=== PATIENT | female | born 1955 | race Caucasian/White ===

== ENCOUNTER 2020-07-09 17:31 | Inpatient (IN) | payer OTHER, SELFPAY ==
[2020-07-09] VITALS (10 sets, daily range): BP systolic 110–152; BP diastolic 42–71; PULSE 80–89; RESP 19–28; TEMP 36.3–36.4; O2SAT 98–100
--- NOTE | ~2020-07-09 | XR_ITS ---
XR chest 1V portable DATE: 07/09/2020 18:12 INDICATION: Cough, shortness of breath, fever, diminished appetite. Diarrhea. TECHNIQUE: Portable upright AP chest on 07/09/2020 at 1811 hours COMPARISON: None FINDINGS: Heart size appears normal. There are are patchy diffuse bilateral pulmonary infiltrates consistent with extensive bilateral pneu monia. No pleural effusion or pneumothorax. IMPRESSION: Patchy diffuse bilateral pulmonary infiltrates Reviewed, dictated and finalized at location A.
--- NOTE | ~2020-07-09 | CT_ITS ---
EXAMINATION: CTA chest PE protocol DATE: 07/09/2020 19:45 INDICATION: Shortness of breath TECHNIQUE: Computed tomography angiography (CTA) of the chest was performed with 100 mL Omnipaque-350 intravenous contrast timed to evaluate the pulmonary arteries. Coronal maximum intensity projection 3D-reconstructions were created by the technologist. Automated exposure control and iterative reconst ruction technique were employed. Exam dose: 691.11 mGy-cm total exam DLP. COMPARISON: None. FINDINGS: There is diagnostic contrast enhancement of the pulmonary arteries. There is no evidence of pulmonary embolism. Normal heart size. There is no aortic aneurysm or dissection. There are scattered patchy ground glass pulmonary infiltrates throughout both lungs. There is mild bilateral hilar and mediastinal enlargement, likely reactive. Diffuse hepatic steatosis. Right adrenal 11 mm mass and 18 mm left adrenal mass. There is degenerative spurring of the cervical, thoracic and lumbar spine. IMPRESSION: Scattered patchy pulmonary ground glass infiltrates throughout both lungs, with probable bilateral hilar and mediastinal reactive lymphadenopathy No evidence of pulmonary embolism Hepatic steatosis Bilateral adrenal masses Reviewed, dictated and finalized at Location A. Reviewed, dictated and finalized at location A. IMPRESSION: Scattered patchy pulmonary ground glass infiltrates throughout bot h lungs, with probable bilateral hilar and mediastinal reactive lymphadenopathy No evidence of pulmonary embolism Hepatic steatosis Bilateral adrenal masses
--- NOTE | ~2020-07-09 | XR_ITS ---
XR chest 1V portable 07/13/2020 17:32 Indication: Shortness of breath. Covid positive. Procedure: AP portable chest Comparison: 07/09/2020 Findings: There are persistent patchy bilateral infiltrates, compatible with pneumonia. No significan t change allowing for differences of technique. No significant effusion. Heart size normal. No pneumo thorax. No acute osseous abnormality. Impression: 1: Stable patchy bilateral airspace disease, compatible with pneumonia. Reviewed, dictated and finalized at location A. Impression: 1: Stable patchy bilateral airspace disease, compatible with pneumonia.
--- NOTE | 2020-07-09 17:54 | ECG_ITS ---
Measurements Intervals [place] Rate: 86 P: 74 VA: 148 QRS: 64 QRSD: 93 T: 41 QT: 363 QTc: 435 Interpretive Statements SINUS RHYTHM DELAYED PRECORDIAL R/S TRANSITION BASELINE WANDER- II, III, V1-V6 BORDERLINE ECG Electronically Signed On 07-09-2020 21:57:36 CDT by Justino Wing D.O.
--- NOTE | 2020-07-09 18:05 | ED.GENADULT ---
HPI - General Adult General Chief complaint: Shortness of Breath/Dyspnea Stated complaint: SOB Time Seen by Provider: 07/09/20 17:54 Source: patient History of Present Illness HPI narrative: Patient is a 65 y/o female complaining of moderate SOB for 1 week. There is no alleviating or exacerbating factor. She also has some cough and chill. She did not check her temperature. She has not had COVID vaccine yet. She had pulse of 89% on RA in triage. She was placed on O2 via nasal canula. Related Data Home Medications Medication Instructions Recorded Confirmed Januvia 07/09/20 metformin 1,500 mg PO DAILY 07/09/20 Allergies Allergy/AdvReac Type Severity Reaction Status Date / Time No Known Allergies Allergy Verified 07/09/20 17:53 Review of Systems Constitutional: Constitutional: Denies chills, Denies fever(s), Denies headache(s) and Denies weakness Eyes: Eyes: Denies blurry vision ENT: Denies headache(s) and Denies neck pain Cardiovascular: Cardiovascular: Denies chest pain and Reports dyspnea Respiratory: Respiratory: Reports cough and Reports dyspnea Gastrointestinal: Gastrointestinal: Denies abdominal pain, Denies diarrhea, Denies nausea and Denies vomiting Genitourinary: Genitourinary: Denies hematuria and Denies dysuria Musculoskeletal: Musculoskeletal: Denies back pain and Denies neck pain Neurologic: Denies headache(s) and Denies weakness [facility] Social History Social History Gender identity (if verbalized by the patient): Female Exam Const: General: no acute distress and well developed Orientation/consciousness: oriented to person, oriented to place, oriented to time and patient oriented x3 HENMT: Head: normocephalic Ears: external ears normal General nose exam: Normal external nose present Eyes: General: appearance normal, both eyes and all related structures Conjunctivae: conjunctivae normal Neck: Neck: normal visual inspection and full ROM Chest: Chest palpation & inspection: normal inspection of the chest and no tenderness Resp: Effort & Inspection: normal respiratory effort and tachypneic Auscultation: clear to auscultation bilaterally Cardio: Rate: regular rate Rhythm: regular rhythm GI: GI Palp: No abdominal tenderness and Yes Soft to palpation Skin: General skin exam: normal color and turgor normal Neuro: General: oriented to person, oriented to place, oriented to time and patient oriented x3 Cognition (Neuro): normal cognition Extrem: General: normal to inspection, full ROM and no pedal edema Psych: Appearance: grossly normal Mental Status: mental status grossly normal Affect: normal affect Course Consultations Consultation #1: Discussed with Dr. Gonzalez, who agrees to admit. Date: 07/09/20 Time: 20:51 Vital Signs Vital signs: Vital Signs Temperature 36.3 C L 07/09/20 17:49 Pulse Rate 87 07/09/20 17:49 Respiratory Rate 28 H 07/09/20 17:49 Blood Pressure 152/71 H 07/09/20 17:49 Pulse Oximetry 98 07/09/20 17:49 Temperature 36.3 C L 07/09/20 17:49 Pulse Rate 84 07/09/20 22:02 Respiratory Rate 24 H 07/09/20 22:02 Blood Pressure 110/42 L 07/09/20 22:02 Pulse Oximetry 99 07/09/20 22:02 Medical Decision Making Vital Signs Vital Signs: Vital Signs Temperature 36.3 C L 07/09/20 17:49 Pulse Rate 87 07/09/20 17:49 Respiratory Rate 28 H 07/09/20 17:49 Blood Pressure 152/71 H 07/09/20 17:49 Pulse Oximetry 98 07/09/20 17:49 Temperature 36.3 C L 07/09/20 17:49 Pulse Rate 84 07/09/20 22:02 Respiratory Rate 24 H 07/09/20 22:02 Blood Pressure 110/42 L 07/09/20 22:02 Pulse Oximetry 99 07/09/20 22:02 Lab Data Result diagrams: 07/09/20 18:02 07/09/20 18:02 Labs: Lab Results 07/09/20 07/09/20 07/09/20 Range/Units 18:02 18:02 18:02 WBC 5.8 (4.5-10.0) K/mm3 RBC 4.81 (4.2-5.4) M/mm3 Hgb 14.2 (12.0-15.0) g
[2020-07-09 18:12] LABS: Basophils Percent Auto 0.5 % (0.2-1.2); Eosinophils Percent Auto 0.7 % (0-4.4); Hematocrit 42.9 % (37.0-47.0); Hemoglobin 14.2 g/dL (12.0-15.0); Immature Granulocyte Absolute 0.04 K/mm3 (0.00-0.031); Immature Granulocyte Percent A 0.7 % (0-0.5); Lymphocytes Absolute Auto 1.91 K/mm3 (0.9-3.2); Lymphocytes Percent Auto 32.8 % (18.3-44.2); Mean Corpuscular HGB Conc 33.1 g/dl (32-36); Mean Corpuscular Hemoglobin 29.5 pg (26-34); Mean Corpuscular Volume 89.2 fl (80-100); Mean Platelet Volume 10.2 fl (7.4-10.4); Monocytes Absolute Auto 0.6 K/mm3 (0.1-0.6); Monocytes Percent Auto 10.6 % (2.6-8.5); Neutrophils Absolute Auto 3.2 K/mm3 (1.3-6.7); Neutrophils Percent Auto 54.7 % (45.5-73.1); Platelet Count Result 253 k/mm3 (150-375); Red Blood Count 4.81 M/mm3 (4.2-5.4); Red Cell Distribution Width 12.8 % (11.5-14.5); White Blood Count 5.8 K/mm3 (4.5-10.0)
[2020-07-09 18:24] LABS: Alanine Aminotransferase 20 U/L (4-35); Albumin Level 4.1 g/dL (3.5-5.1); Alkaline Phosphatase 97 U/L (38-126); Anion Gap 7 mmol/L (8-16); Aspartate Amino Transferase 37 U/L (14-36); Bilirubin,Total 0.6 mg/dL (0.2-1.3); Blood Urea Nitrogen 14 mg/dL (7-17); Calcium 8.7 mg/dL (8.4-10.2); Carbon Dioxide 28 mmol/L (22-30); Chloride 101 mmol/L (98-107); Estimated CRCL calculation 132 ml/min; Estimated Glomerular Filt Rate > 60; Glucose 309 mg/dL (65-105); Potassium 3.8 mmol/L (3.4-5.0); Sodium 136 mmol/L (137-145)
[2020-07-09 18:36] LABS: NT Pro B Type Natriuretic Pept 83 PG/ML (5-100); Troponin I < 0.012 ng/mL (0.000-0.034)
[2020-07-09 19:04] LABS: D Dimer 0.73 ug/mL (<0.48)
[2020-07-09 21:56] LABS: Troponin I < 0.012 ng/mL (0.000-0.034)
--- NOTE | 2020-07-09 22:30 | ADMGEN ---
This patient, Harriet Giraldo, was admitted to 3 [facility] Surg Room 326-01. Patient/family oriented to hospital policies and general routines including ID bracelet, bed and alarms, visiting hours, pain management, procedures, bathroom and other care routines, personal items, smoking policy, room service/diet, and visiting hours. Information on how to activate the Rapid Response Team has been discussed. Patient/Family are encouraged to report perceived risks to care and to ask questions if they do not understand what they are told or what they should do.
[2020-07-10] VITALS (8 sets, daily range): BP systolic 116–149; BP diastolic 48–60; PULSE 67–87; RESP 16–20; TEMP 36.1–37; O2SAT 93–99
[2020-07-10 00:11] LABS: Glucose Point of Care 275 (65-105)
[2020-07-10 00:49] LABS: Troponin I < 0.012 ng/mL (0.000-0.034)
[2020-07-10] MEDS: ACETAMINOPHEN 325 MG TABLET 650 MG PO ×2 (04:55→15:04)
--- NOTE | 2020-07-10 07:36 | PM.IMHP ---
H&P: HPI History of Present Illness Date/Time: 07/10/20 05:15 Chief Complaint: Shortness of breath Narrative: 65-year-old female past medical history of diabetes and obesity who presented to the ER (after her was brought into the ER by EMS) due to shortness of breath. The patient reports that approximately 10 days ago both her became ill. Her initial symptoms included fatigue lethargy and generalized body aches. Couple of days later she developed cough occasionally productive of brown sputum and subjective fevers. Get out of bed except to go to the bathroom bathroom for the last week. She reports that food does not taste right but denies any complete loss of sense of taste or smell. She has no known COVID exposures years but she and her live with their daughter who works outside the home. She reported a headache on the evening of the but denies any visual changes. She has not had any nausea or vomiting. She has had some loose stools. Worse with cough. She denies any dysuria. She has chronic urinary urgency with occasional urinary incontinence. She denies any hematuria, hematochezia or melena. She reports that she is frequently fatigued upon awakening but assumes that that is because her is a restless sleeper and wakes her up multiple times. She does snore. She denies any lower extremity swelling, orthopnea or paroxysmal nocturnal dyspnea. Review of Systems Review of Systems: Narrative: 12 systems were reviewed with pertinent positives and negatives per HPI. Except as documented in the HPI, all other systems were reviewed and are negative. [facility] Past Medical History Medical History (Updated 07/10/20 @ 08:07 by Aye Gonzalez DO) Diabetes mellitus Obesity Urge incontinence Surgical History Surgical History (Updated 07/10/20 @ 07:39 by Aye Gonzalez DO) History of 3 sections History of tonsillectomy History of tubal ligation Family History Family History (Updated 07/10/20 @ 07:46 by Aye Gonzalez DO) Father Diabetes mellitus Lung cancer Mother Lung cancer Sibling Diabetes mellitus Lung cancer Social History Social History (Updated 07/10/20 @ 07:49 by Aye Gonzalez DO) Social History: She and her are originally from [place]. 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 She has 3 children total. She is a former smoker and smoked a pack per day for 34 years. She quit smoking in 2008. She does not drink alcohol use illicit substances. Smoking packs per day: 1 Smoking cigarettes per day: 20.0 Years smoked: 34 Smoking pack-years: 34.00 Smoking status: Former smoker Tobacco type: cigarettes Alcohol intake: never Substance use: never Substance use type: does not use Gender identity (if verbalized by the patient): Female Spiritual care concerns: No Meds Home Medications and Allergies Home Medications Medication Instructions Recorded Confirmed Type metformin 2,000 mg PO QPM 07/09/20 07/10/20 History sitagliptin [Januvia] 100 mg PO QAM 07/10/20 07/10/20 History Allergies Allergy/AdvReac Type Severity Reaction Status Date / Time No Known Allergies Allergy Verified 07/09/20 17:53 Vital Signs Vital Signs - 24 hr 07/09/20 17:49 07/09/20 17:56 07/09/20 18:08 Temperature 97.3 F L Pulse Rate 87 89 83 Respiratory Rate 28 H 22 H Blood Pressure 152/71 H 152/71 H Pulse Oximetry 98 98 07/09/20 18:40 07/09/20 19:02 07/09/20 20:00 Temperature Pulse Rate 80 81 84 Respiratory Rate 22 H 26 H 19 Blood Pressure 135/65 134/62 135/65 Pulse Oximetry 99 98 100 07/09/20 21:15 07/09/20 22:02 07/09/20 22:25 Temperature 97.5 F L Pulse Rate 80 84 80 Respiratory Rate 28 H 24 H 22 H Blood Pressure 125/53 L 110/42 L 142/68 H Pulse Oximetry 99 99 98 07/09/20 23:45 07/10/20 04:00 [place]a
[2020-07-10 08:07] LABS: Hematocrit 41.8 % (37.0-47.0); Hemoglobin 13.8 g/dL (12.0-15.0); Mean Corpuscular Hemoglobin 29.7 pg (26-34); Mean Corpuscular Volume 90.1 fl (80-100); Mean Platelet Volume 10.1 fl (7.4-10.4); Platelet Count Result 230 k/mm3 (150-375); Red Blood Count 4.64 M/mm3 (4.2-5.4); Red Cell Distribution Width 12.9 % (11.5-14.5); White Blood Count 6.1 K/mm3 (4.5-10.0)
[2020-07-10 08:18] LABS: Anion Gap 6 mmol/L (8-16); Blood Urea Nitrogen 14 mg/dL (7-17); Calcium 8.5 mg/dL (8.4-10.2); Carbon Dioxide 30 mmol/L (22-30); Chloride 101 mmol/L (98-107); Estimated CRCL calculation 132 ml/min; Estimated Glomerular Filt Rate > 60; Glucose 313 mg/dL (65-105); Potassium 3.7 mmol/L (3.4-5.0); Sodium 137 mmol/L (137-145)
[2020-07-10] MEDS: INSULIN ASPART (*BKC) 100 UNITS/ML SUB-Q ×3 (08:19→17:15)
[2020-07-10] MEDS: ENOXAPARIN 40 MG/0.4 ML SYRINGE SUB-Q ×2 (08:43→22:50)
[2020-07-10 09:19] LABS: Glucose Point of Care 295 (65-105)
[2020-07-10 10:24] LABS: Hemoglobin A1C 11.5 % (<5.7)
[2020-07-10 12:30] LABS: Glucose Point of Care 299 (65-105)
[2020-07-10] MEDS: SOLIFENACIN 5 MG TABLET 10 MG PO (15:00)
[2020-07-10 16:59] LABS: Glucose Point of Care 286 (65-105)
[2020-07-10] MEDS: ESCITALOPRAM OXALATE 10 MG TABLET 20 MG PO (17:17)
[2020-07-10] MEDS: metFORMIN HCL XR 500 MG TAB.SR.24H 2000 MG PO (17:17)
--- NOTE | 2020-07-10 17:45 | PM.IMPN ---
Progress Note: A&P Assessment and Plan (1) Pneumonia: Qualifiers: Laterality: bilateral Lung location: unspecified part of lung Pneumonia type: due to unspecified organism Qualified Code(s): J18.9 - Pneumonia, unspecified organism Code(s): J18.9 - Pneumonia, unspecified organism Status: Acute Assessment and Plan: Patient has been started on ceftriaxone and Zithromax Supportive care Await blood cultures (2) Person under investigation for COVID-19: Code(s): Z20.822 - Contact with and (suspected) exposure to COVID-19 Status: Acute Assessment and Plan: Awaiting COVID-19 PCR The patient is on isolation (3) Acute respiratory failure with hypoxia: Code(s): J96.01 - Acute respiratory failure with hypoxia Status: Acute Assessment and Plan: On 2 L of nasal cannula oxygen Saturating in the 90s (4) Type 2 diabetes mellitus with hyperglycemia: 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 Qualified Code(s): E11.65 - Type 2 diabetes mellitus with hyperglycemia Code(s): E11.65 - Type 2 diabetes mellitus with hyperglycemia Status: Acute Assessment and Plan: 1800 calorie restricted diet Insulin sliding scale as needed Accu-Cheks AC and HS Subjective Date/time seen: 07/10/20 17:45 I do not feel well Review of Systems Review of Systems: Narrative: Patient presented to the emergency room after having generalized Nancy fever chills poor appetite dry cough for about a week or so Constitutional: Comments: Fevers chills generalized malaise is muscle aches and pains Cardiovascular: Comments: No chest pain no PND no orthopnea Respiratory: Comments: Persistent dry cough shortness of breath Gastrointestinal: Comments: No nausea no vomiting no diarrhea no constipation Musculoskeletal: Comments: Muscle aches and pains Integumentary/Breasts: Comments: No rashes Neurologic: Comments: No sensorimotor deficit Exam Narrative: Exam Narrative: Patient is sitting by the edge of the bed well-appearing, coughs at times Const: General: comfortable, no acute distress, well developed, alert and awake Nutritional Appearance: average body habitus Orientation/consciousness: patient oriented x3 HENMT: Head: normal to inspection, normocephalic and atraumatic Ears: hearing grossly normal bilaterally Face and sinus: normal facial exam Eyes: General: appearance normal, both eyes and all related structures Pupils: Equal, round and reactive pupils present EOM: EOMs intact bilaterally Neck: Neck: full ROM, no lymphadenopathy and no JVD Thyroid: thyroid normal Lymphatic: no lymphadenopathy noted Resp: Effort & Inspection: normal respiratory effort and able to speak in complete sentences Auscultation: clear to auscultation bilaterally Cardio: Jugular venous distension: no JVD Rate: regular rate Rhythm: regular rhythm Heart sounds: S1 normal heart sound present and S2 normal heart sound present GI: GI Palp: Yes Soft to palpation and Yes No hepatosplenomegaly present : General: Yes deferred Skin: Rashes: no rashes Wounds: no wounds Neuro: General: patient oriented x3 and CN's II-XI intact bilaterally Cranial nerves: Yes CN's II-XII intact bilaterally and Yes Equal, round and reactive pupils present Cognition (Neuro): normal cognition Speech: normal speech Gait exam (Neuro): Normal gait present Motor exam (neuro): 5/5 motor strength present throughout Extrem: General: normal to inspection, full ROM, no joint enlargement and no pedal edema Objective Data Vital Signs Vital Signs: Vital Signs - 24 hr 07/09/20 17:49 07/09/20 17:56 07/09/20 18:08 Temperature 97.3 F L Pulse Rate 87 89 83 Respiratory Rate 28 H 22 H Blood Pressure 152/71 H 152/71 H Pulse Oximetry 98 98 07/09/20 18:40 07/09/20 19:02 07/09/20 20:00 Temperature Pulse Rate 80 81 84 Respiratory Rate 22 H 26 H 19 Blood Pressure
[2020-07-10 19:04] LABS: SARS-CoV-2 RNA PCR Positive
[2020-07-10] MEDS: DONEPEZIL HCL 10 MG TABLET PO (20:51)
[2020-07-11] VITALS (9 sets, daily range): BP systolic 121–147; BP diastolic 50–79; PULSE 74–80; RESP 18–20; TEMP 36.2–36.6; O2SAT 88–98
[2020-07-11 04:53] LABS: Glucose Point of Care 335 (65-105)
[2020-07-11 08:55] LABS: Glucose Point of Care 290 (65-105)
[2020-07-11] MEDS: INSULIN ASPART (*BKC) 100 UNITS/ML SUB-Q ×3 (08:55→17:16)
[2020-07-11] MEDS: ENOXAPARIN 40 MG/0.4 ML SYRINGE SUB-Q ×2 (08:56→20:45)
[2020-07-11] MEDS: SOLIFENACIN 5 MG TABLET 10 MG PO (08:56)
[2020-07-11] MEDS: EZETIMIBE 10 MG TABLET PO (08:56)
[2020-07-11] MEDS: DEXAMETHASONE SOD PHOS INJ 4 MG/ML VIAL 6 MG IV PUSH (08:56)
[2020-07-11 12:00] LABS: Glucose Point of Care 315 (65-105)
--- NOTE | 2020-07-11 15:31 | PM.IMPN ---
Progress Note: A&P Assessment and Plan (1) Pneumonia: Qualifiers: Laterality: bilateral Lung location: unspecified part of lung Pneumonia type: due to unspecified organism Qualified Code(s): J18.9 - Pneumonia, unspecified organism Code(s): J18.9 - Pneumonia, unspecified organism Status: Acute Assessment and Plan: Patient has been started on ceftriaxone and Zithromax Await sputum and blood cultures (2) Person under investigation for COVID-19: Code(s): Z20.822 - Contact with and (suspected) exposure to COVID-19 Status: Acute Assessment and Plan: Pt is positive for covid (3) Acute respiratory failure with hypoxia: Code(s): J96.01 - Acute respiratory failure with hypoxia Status: Acute Assessment and Plan: On 2 L of nasal cannula oxygen (4) Type 2 diabetes mellitus with hyperglycemia: Qualifiers: 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 Patient is covid positive. Subjective Date/time seen: 07/11/20 15:31 Interval history: 65-year-old female past medical history of diabetes and obesity who presented to the ER (after her was brought into the ER by EMS) due to shortness of breath. Found to be COVID positive. Pt is still having a bad cough. Review of Systems Review of Systems: All systems reviewed & are unremarkable except as noted in HPI and below Exam Narrative: Exam Narrative: Patient is sitting by the edge of the bed well-appearing, coughs at times HENMT: Head: normal to inspection, normocephalic and atraumatic Ears: hearing grossly normal bilaterally Face and sinus: normal facial exam Eyes: General: appearance normal, both eyes and all related structures Pupils: Equal, round and reactive pupils present EOM: EOMs intact bilaterally Neck: Neck: full ROM, no lymphadenopathy and no JVD Thyroid: thyroid normal Lymphatic: no lymphadenopathy noted Resp: Effort & Inspection: normal respiratory effort Cardio: Jugular venous distension: no JVD Rate: regular rate Rhythm: regular rhythm Heart sounds: S1 normal heart sound present and S2 normal heart sound present Skin: Rashes: no rashes Wounds: no wounds Neuro: General: patient oriented x3 and CN's II-XI intact bilaterally Cranial nerves: Yes CN's II-XII intact bilaterally and Yes Equal, round and reactive pupils present Cognition (Neuro): normal cognition Speech: normal speech Gait exam (Neuro): Normal gait present Motor exam (neuro): 5/5 motor strength present throughout Extrem: General: normal to inspection, full ROM, no joint enlargement and no pedal edema Objective Data Vital Signs Vital Signs: Vital Signs - 24 hr 07/10/20 16:00 07/10/20 20:00 07/11/20 00:00 Temperature 36.6 C 36.1 C L 36.2 C L Pulse Rate 67 73 74 Respiratory Rate 16 18 18 Blood Pressure 116/48 L 137/58 L 121/50 L Pulse Oximetry 98 95 97 07/11/20 04:00 07/11/20 08:00 07/11/20 08:55 Temperature 36.6 C 36.2 C L Pulse Rate 78 75 Respiratory Rate 18 18 Blood Pressure 146/71 H 134/55 L Pulse Oximetry 96 91 88 L 07/11/20 09:00 07/11/20 12:00 Temperature 36.3 C L Pulse Rate 79 Respiratory Rate 20 Blood Pressure 146/66 H Pulse Oximetry 95 95 Intake/Output Intake/Output: Intake & Output 07/08/20 07/09/20 07/10/20 07/11/20 23:59 23:59 23:59 23:59 Intake Total 300 1640 340 Output Total 600 Balance 300 1040 340 Meds/Results Medications: Active Medications Generic Name Dose Route Start Last Admin Trade Name Freq PRN Reason Stop Dose Admin Acetaminophen 650 mg 07/10/20 04:41
[2020-07-11] MEDS: metFORMIN HCL XR 500 MG TAB.SR.24H 2000 MG PO (17:17)
[2020-07-11] MEDS: ESCITALOPRAM OXALATE 10 MG TABLET 20 MG PO (17:18)
[2020-07-11 18:08] LABS: Glucose Point of Care 351 (65-105)
[2020-07-11] MEDS: BENZONATATE 100 MG CAPSULE PO (18:11)
[2020-07-11] MEDS: DONEPEZIL HCL 10 MG TABLET PO (20:46)
[2020-07-11 20:55] LABS: Glucose Point of Care 344 (65-105)
[2020-07-11] MEDS: INSULIN ASPART (*BKC) 100 UNITS/ML 6 UNITS SUB-Q (22:47)
[2020-07-11 22:54] LABS: Glucose Point of Care 283 (65-105)
[2020-07-12] VITALS (8 sets, daily range): BP systolic 111–154; BP diastolic 50–72; PULSE 68–78; RESP 16–20; TEMP 36.2–37; O2SAT 91–99
[2020-07-12 05:17] LABS: Glucose Point of Care 225 (65-105)
[2020-07-12 07:58] LABS: Glucose Point of Care 231 (65-105)
[2020-07-12] MEDS: INSULIN ASPART (*BKC) 100 UNITS/ML SUB-Q ×3 (08:32→17:34)
[2020-07-12] MEDS: BENZONATATE 100 MG CAPSULE PO ×3 (08:33→17:34)
[2020-07-12] MEDS: ENOXAPARIN 40 MG/0.4 ML SYRINGE SUB-Q ×2 (08:33→20:32)
[2020-07-12] MEDS: SOLIFENACIN 5 MG TABLET 10 MG PO (08:33)
[2020-07-12] MEDS: DEXAMETHASONE SOD PHOS INJ 4 MG/ML VIAL 6 MG IV PUSH (08:33)
[2020-07-12] MEDS: EZETIMIBE 10 MG TABLET PO (08:33)
[2020-07-12 12:20] LABS: Glucose Point of Care 341 (65-105)
--- NOTE | 2020-07-12 16:53 | PM.IMPN ---
Progress Note: A&P Assessment and Plan (1) Pneumonia: Qualifiers: Laterality: bilateral Lung location: unspecified part of lung Pneumonia type: due to unspecified organism Qualified Code(s): J18.9 - Pneumonia, unspecified organism Code(s): J18.9 - Pneumonia, unspecified organism Status: Acute Assessment and Plan: Patient has been started on iv steroids and Tessalon perles doing well. 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 Patient is covid positive. Subjective Date/time seen: 07/12/20 16:53 Interval history: 65-year-old female past medical history of diabetes and obesity who presented to the ER (after her was brought into the ER by EMS) due to shortness of breath. Found to be COVID positive. Pts cough is better. Review of Systems Review of Systems: All systems reviewed & are unremarkable except as noted in HPI and below Exam Narrative: Exam Narrative: Patient is sitting by the edge of the bed well-appearing, coughs at times Const: Orientation/consciousness: patient oriented x3 HENMT: Head: normal to inspection, normocephalic and atraumatic Ears: hearing grossly normal bilaterally Face and sinus: normal facial exam Eyes: General: appearance normal, both eyes and all related structures Pupils: Equal, round and reactive pupils present EOM: EOMs intact bilaterally Neck: Neck: full ROM, no lymphadenopathy and no JVD Thyroid: thyroid normal Lymphatic: no lymphadenopathy noted Resp: Effort & Inspection: normal respiratory effort Cardio: Jugular venous distension: no JVD Rate: regular rate Rhythm: regular rhythm Heart sounds: S1 normal heart sound present and S2 normal heart sound present Skin: Rashes: no rashes Wounds: no wounds Neuro: General: patient oriented x3 and CN's II-XI intact bilaterally Cranial nerves: Yes CN's II-XII intact bilaterally and Yes Equal, round and reactive pupils present Cognition (Neuro): normal cognition Speech: normal speech Gait exam (Neuro): Normal gait present Motor exam (neuro): 5/5 motor strength present throughout Extrem: General: normal to inspection, full ROM, no joint enlargement and no pedal edema Objective Data Vital Signs Vital Signs: Vital Signs - 24 hr 07/11/20 20:00 07/11/20 22:36 07/12/20 00:00 Temperature 36.4 C 36.4 C Pulse Rate 80 78 Respiratory Rate 20 20 Blood Pressure 146/66 H 129/50 L Pulse Oximetry 96 96 94 07/12/20 04:00 07/12/20 08:00 07/12/20 08:09 Temperature 36.6 C 36.2 C L Pulse Rate 68 69 Respiratory Rate 20 16 Blood Pressure 111/50 L 135/60 Pulse Oximetry 99 95 97 07/12/20 12:00 Temperature 36.3 C L Pulse Rate 73 Respiratory Rate 16 Blood Pressure 132/72 Pulse Oximetry 95 Intake/Output Intake/Output: Intake & Output 07/09/20 07/10/20 07/11/20 07/12/20 23:59 23:59 23:59 23:59 Intake Total 300 1640 1720 830 Output Total 600 1200 Balance 300 1040 520 830 Meds/Results Medications: Active Medications Generic Name Dose Route Start Last Admin Trade Name Freq PRN Reason Stop D
[2020-07-12 17:13] LABS: Glucose Point of Care 360 (65-105)
[2020-07-12] MEDS: ESCITALOPRAM OXALATE 10 MG TABLET 20 MG PO (17:34)
[2020-07-12] MEDS: metFORMIN HCL XR 500 MG TAB.SR.24H 2000 MG PO (17:34)
[2020-07-12] MEDS: DONEPEZIL HCL 10 MG TABLET PO (20:32)
[2020-07-12 21:34] LABS: Glucose Point of Care 344 (65-105)
[2020-07-12 22:58] LABS: Pneumococcal Antigen Urine Not Detected (Not Detected)
[2020-07-13] VITALS (7 sets, daily range): BP systolic 137–161; BP diastolic 53–76; PULSE 71–82; RESP 16–20; TEMP 36.1–37.2; O2SAT 92–94
[2020-07-13 08:06] LABS: Glucose Point of Care 189 (65-105)
[2020-07-13] MEDS: DEXAMETHASONE SOD PHOS INJ 4 MG/ML VIAL 6 MG IV PUSH (09:46)
[2020-07-13] MEDS: EZETIMIBE 10 MG TABLET PO (09:46)
[2020-07-13] MEDS: BENZONATATE 100 MG CAPSULE PO ×3 (09:46→17:07)
[2020-07-13] MEDS: SOLIFENACIN 5 MG TABLET 10 MG PO (09:46)
[2020-07-13] MEDS: ENOXAPARIN 40 MG/0.4 ML SYRINGE SUB-Q (09:46)
[2020-07-13 12:21] LABS: Glucose Point of Care 305 (65-105)
[2020-07-13] MEDS: INSULIN ASPART (*BKC) 100 UNITS/ML SUB-Q ×2 (12:24→17:07)
[2020-07-13 16:46] LABS: Glucose Point of Care 383 (65-105)
[2020-07-13] MEDS: ESCITALOPRAM OXALATE 10 MG TABLET 20 MG PO (17:06)
[2020-07-13] MEDS: metFORMIN HCL XR 500 MG TAB.SR.24H 2000 MG PO (17:07)
--- NOTE | 2020-07-13 17:15 | PM.IMPN ---
Progress Note: A&P Assessment and Plan (1) Pneumonia: Qualifiers: Laterality: bilateral Lung location: unspecified part of lung Pneumonia type: due to unspecified organism Qualified Code(s): J18.9 - Pneumonia, unspecified organism Code(s): J18.9 - Pneumonia, unspecified organism Status: Acute Assessment and Plan: Patient has been started on iv steroids and Tessalon perles doing well. NO IV Abx were started Await sputum and blood cultures, sputum is ngative (2) Person under investigation for COVID-19: Code(s): Z20.822 - Contact with and (suspected) exposure to COVID-19 Status: Acute Assessment and Plan: Pt is positive for covid (3) Acute respiratory failure with hypoxia: Code(s): J96.01 - Acute respiratory failure with hypoxia Status: Acute Assessment and Plan: Off oxygen DC tomorrow, cxr ronald (4) Type 2 diabetes mellitus with hyperglycemia: Qualifiers: Diabetes mellitus fpc insulin use: without fpc use Qualified Code(s): E11.65 - Type 2 diabetes mellitus with hyperglycemia Code(s): E11.65 - Type 2 diabetes mellitus with hyperglycemia Status: Acute Assessment and Plan: 1800 calorie restricted diet Insulin sliding scale as needed Accu-Cheks AC and HS Additional Plan She has developed acute respiratory failure due to bilateral pneumonia. Patient is covid positive. Subjective Date/time seen: 07/13/20 17:15 Interval history: 65-year-old female past medical history of diabetes and obesity who presented to the ER (after her was brought into the ER by EMS) due to shortness of breath. Found to be COVID positive. Pts cough is better. Doing much better off oxygen Review of Systems Review of Systems: All systems reviewed & are unremarkable except as noted in HPI and below Exam Narrative: Exam Narrative: Patient looks well Const: General: comfortable, no acute distress, well developed, alert and awake Nutritional Appearance: average body habitus Orientation/consciousness: patient oriented x3 HENMT: Head: normal to inspection, normocephalic and atraumatic Ears: hearing grossly normal bilaterally Face and sinus: normal facial exam Eyes: General: appearance normal, both eyes and all related structures Pupils: Equal, round and reactive pupils present EOM: EOMs intact bilaterally Neck: Neck: full ROM, no lymphadenopathy and no JVD Thyroid: thyroid normal Lymphatic: no lymphadenopathy noted Resp: Effort & Inspection: normal respiratory effort and able to speak in complete sentences Auscultation: clear to auscultation bilaterally Cardio: Jugular venous distension: no JVD Rate: regular rate Rhythm: regular rhythm Heart sounds: S1 normal heart sound present and S2 normal heart sound present : General: Yes deferred Skin: Rashes: no rashes Wounds: no wounds Neuro: General: patient oriented x3 and CN's II-XI intact bilaterally Cranial nerves: Yes CN's II-XII intact bilaterally and Yes Equal, round and reactive pupils present Cognition (Neuro): normal cognition Speech: normal speech Gait exam (Neuro): Normal gait present Motor exam (neuro): 5/5 motor strength present throughout Extrem: General: normal to inspection, full ROM, no joint enlargement and no pedal edema Objective Data Vital Signs Vital Signs: Vital Signs - 24 hr 07/12/20 20:00 07/12/20 21:03 07/13/20 00:00 Temperature 37.0 C 37.2 C Pulse Rate 77 75 72 Respiratory Rate 20 20 Blood Pressure 154/56 H 137/53 L Pulse Oximetry 91 92 94 07/13/20 04:00 07/13/20 08:00 07/13/20 12:00 Temperature 36.6 C 36.1 C L 36.2 C L Pulse Rate 72 71 Respiratory Rate 20 16 Blood Pressure 141/53 H 149/76 H Pulse Oximetry 94 94 07/13/20 12:33 Temperature 36.2 C L Pulse Rate 81 Respiratory Rate 16 Blood Pressure 153/70 H Pulse Oximetry 94 Intake/Output Intake/Output: Intake & Output 07/10/20 07/11/20 07/12/20
[2020-07-13 17:46] LABS: Legionella pneumophila Ag Ur Not Detected (Not Detected)
[2020-07-14] VITALS: BP 154/67; PULSE 87; RESP 20; TEMP 36.9; O2SAT 94
[2020-07-14 00:17] VITALS: O2SAT 92
[2020-07-14] MEDS: ENOXAPARIN 40 MG/0.4 ML SYRINGE SUB-Q ×2 (01:38→08:46)
[2020-07-14] MEDS: DONEPEZIL HCL 10 MG TABLET PO (01:38)
[2020-07-14 01:39] LABS: Glucose Point of Care 310 (65-105)
--- NOTE | 2020-07-14 01:42 | PC.NURSE ---
POC Capillary glucose is 310 @ 0138. Asymptomatic with no s/s of hyperglycemic reaction.
[2020-07-14 04:00] VITALS: BP 165/82; PULSE 76; RESP 20; TEMP 37.1; O2SAT 93
[2020-07-14 08:00] VITALS: BP 138/63; PULSE 62; RESP 20; TEMP 36.7; O2SAT 96
[2020-07-14 08:02] LABS: Glucose Point of Care 238 (65-105)
[2020-07-14] MEDS: INSULIN ASPART (*BKC) 100 UNITS/ML SUB-Q ×2 (08:45→12:29)
[2020-07-14] MEDS: DEXAMETHASONE SOD PHOS INJ 4 MG/ML VIAL 6 MG IV PUSH (08:46)
[2020-07-14] MEDS: BENZONATATE 100 MG CAPSULE PO ×2 (08:46→12:30)
[2020-07-14] MEDS: EZETIMIBE 10 MG TABLET PO (08:46)
[2020-07-14] MEDS: SOLIFENACIN 5 MG TABLET 10 MG PO (08:46)
[2020-07-14 11:48] LABS: Glucose Point of Care 344 (65-105)
[2020-07-14 11:55] VITALS: BP 141/59; PULSE 78; RESP 20; TEMP 36.7; O2SAT 94
--- NOTE | 2020-07-14 14:02 | PM.DS ---
DS: Admitting Diagnosis Admitting Diagnosis Admitting Diagnosis: Shortness of breath DS: Discharge Diagnosis Discharge Diagnosis (1) Pneumonia: Qualifiers: Laterality: bilateral Lung location: unspecified part of lung Pneumonia type: due to unspecified organism Qualified Code(s): J18.9 - Pneumonia, unspecified organism Code(s): J18.9 - Pneumonia, unspecified organism Status: Acute Assessment and Plan: COVID PNEUMOMIA VIRAL PNEUMONIA Patient has been started on iv steroids and Tessalon perles doing well. NO IV Abx were started Await sputum and blood cultures, sputum is negative. Pt weaned off oxygen doing well. Continue oral steroid course at home and Tessalon perles. (2) Person under investigation for COVID-19: Code(s): Z20.822 - Contact with and (suspected) exposure to COVID-19 Status: Acute Assessment and Plan: Pt is positive for covid doing well weaned off oxygen stable for discharge home gail have to quaratine until 07/21/2020 (3) Acute respiratory failure with hypoxia: Code(s): J96.01 - Acute respiratory failure with hypoxia Status: Acute Assessment and Plan: Cxr showed pneumonia but pt is stable for discharge (4) Type 2 diabetes mellitus with hyperglycemia: Qualifiers: Diabetes mellitus emt intermediate insulin use: without fpc use Qualified Code(s): E11.65 - Type 2 diabetes mellitus with hyperglycemia Code(s): E11.65 - Type 2 diabetes mellitus with hyperglycemia Status: Acute Assessment and Plan: 1800 calorie restricted diet adviced her sugars will run high on oral steroids DS: Summary Hospital Course Hospital Course: 65-year-old female past medical history of diabetes and obesity who presented to the ER (after her was brought into the ER by EMS) due to shortness of breath. Found to be COVID positive. Pts cough is better. Doing much better off oxygen since yesterday, stable for discharge. Time Spent with Patient Time attestation: Total time spent providing and/or coordinating discharge services:40 minutes on day of discharge Exam Narrative: Exam Narrative: Patient looks well Const: General: comfortable, no acute distress, well developed, alert and awake Nutritional Appearance: average body habitus Orientation/consciousness: patient oriented x3 HENMT: Head: normal to inspection, normocephalic and atraumatic Ears: hearing grossly normal bilaterally Face and sinus: normal facial exam Resp: Effort & Inspection: normal respiratory effort and able to speak in complete sentences Auscultation: clear to auscultation bilaterally Cardio: Jugular venous distension: no JVD Rate: regular rate Rhythm: regular rhythm Heart sounds: S1 normal heart sound present and S2 normal heart sound present : General: Yes deferred Skin: Rashes: no rashes Wounds: no wounds Neuro: General: patient oriented x3 and CN's II-XI intact bilaterally Cranial nerves: Yes CN's II-XII intact bilaterally and Yes Equal, round and reactive pupils present Cognition (Neuro): normal cognition Speech: normal speech Gait exam (Neuro): Normal gait present Motor exam (neuro): 5/5 motor strength present throughout Extrem: General: normal to inspection, full ROM, no joint enlargement and no pedal edema DS: Data Data Completed and Pending Labs on day of discharge: Labs from last 24 hours 07/14/20 07/14/20 07/14/20 11:42 07:56 01:17 POC Capillary Glucose 344 H 238 H 310 H Ur L.pneumophila Ag 07/13/20 07/10/20 16:37 16:01 POC Capillary Glucose 383 H Ur L.pneumophila Ag Not detected Preliminary micro results at discharge 07/09/20 21:24 Blood Culture - Preliminary Blood 07/09/20 21:24 Blood Culture - Preliminary Blood Discharge Plan Discharge Attending physician on discharge: Naomi Elder Discharging Clinician: Naomi Elder Anticipated Discharge Date/Time: 07/14/20 13:54
== END 2020-07-14 15:30 | disposition home or self-care (01) | DRG 137 ==
LOC: ANHED 17:57 → ANH3MEDSUR 21:12
PROVIDERS: Admitting Provider Internal Medicine; Emergency Provider Emergency Medicine; PCP Physician Assistant; Visit Provider Family Medicine
DX: U07.1 COVID-19 (principal); J12.82 Pneumonia due to coronavirus disease 2019; J96.01 Acute respiratory failure with hypoxia; E11.65 Type 2 diabetes mellitus with hyperglycemia; N39.41 Urge incontinence; E66.9 Obesity, unspecified; Z68.39 Body mass index [BMI] 39.0-39.9, adult; Z87.891 Personal history of nicotine dependence
CPT/HCPCS: 36415; 71045; 71275; 80048; 80053; 82948; 83036; 83880; 84484; 85025; 85027; 85380; 87040; 87070; 87205; 87449; 87899; 93005; 96365; 96368; 96372; 96374; 99285; A9270; C9803; G0378; G0379; J0456; J0696; J1100; J1650; J1815; Q9967; U0003; U0005

== ENCOUNTER 2022-06-03 13:11 | Emergency (ER) | payer MEDICARE, MEDICAID, SELFPAY ==
--- NOTE | ~2022-06-03 | CT_ITS ---
EXAMINATION: CT cervical spine wo con DATE: 06/03/2022 13:53 INDICATION: Neck injury. Fall. TECHNIQUE: Computed tomography (CT) of the cervical spine was performed without intravenous contrast. Automated exposure control and iterative reconstruction technique were employed. The dose-length pro duct was 471.71 mGy-cm. COMPARISON: None FINDINGS: There is kyphosis of cervical spine. Vertebral body heights are normal. There is mildly dec reased disc height at C4-C5, moderately decreased disc height at C5-C6, and severely decreased disc h eight at C6-C7. The following disc levels are specifically discussed: C2-C3: There is mild bilateral uncovertebral joint osteoarthritis. There is mild right and moderate l eft facet joint osteoarthritis. There is no neural foraminal stenosis. There is no central canal sten osis. C3-C4: There is mild bilateral uncovertebral joint osteoarthritis. There is mild bilateral facet join t osteoarthritis. There is no neural foraminal stenosis. There is mild central canal stenosis. C4-C5: There is severe right and mild left uncovertebral joint osteoarthritis. There is mild bilatera l facet joint osteoarthritis. There is mild bilateral neural foraminal stenosis. There is mild centra l canal stenosis. C5-C6: There is severe bilateral uncovertebral joint osteoarthritis. There is mild bilateral facet chana int osteoarthritis. There is mild bilateral neural foraminal stenosis. There is mild central canal st enosis. C6-C7: There is severe bilateral uncovertebral joint osteoarthritis. There is mild bilateral facet chana int osteoarthritis. There is mild right and moderate left neural foraminal stenosis. There is mild ce ntral canal stenosis. C7-T1: There is no uncovertebral joint osteoarthritis. There is severe bilateral facet joint osteoart hritis. There is mild right neural foraminal stenosis. There is no central canal stenosis. IMPRESSION: 1. No fracture. 2. Severe cervical spondylosis. Reviewed, dictated and finalized at location A.
--- NOTE | ~2022-06-03 | CT_ITS ---
Non-contrast Head CT History: Status post fall Technique: Axial non-contrast imaging of the brain was performed. Dose reduction technique was used on this scan by utilizing automated exposure control and iterative reconstruction technique. The dose -length product (DLP) was 605.33 mGy-cm. Findings: There is no evidence of intracranial hemorrhage, mass lesion, or acute infarct. Brain par enchyma appears normal. The ventricles and subarachnoid spaces are normal in size. The calvarium ap pears normal. The visualized paranasal sinuses and mastoid air cells are clear. Impression: No significant abnormality seen. Reviewed, dictated and finalized at location . Impression: No significant abnormality seen.
[2022-06-03 13:21] VITALS: BP 140/58; PULSE 71; RESP 16; TEMP 36.6; O2SAT 99
--- NOTE | 2022-06-03 15:53 | ED.GENADULT ---
HPI - General Adult General Chief complaint: Fall Stated complaint: fall Time Seen by Provider: 06/03/22 14:58 History of Present Illness HPI narrative: 67-year-old female presenting to the emergency department for evaluation after having a ground-level fall. Patient reports that she was attempting to sit in an office chair but it rolled up behind her she fell backward landed on her bottom and then forcefully struck the floor with her head. Patient states she did feel dazed but denies any loss of consciousness. Patient states she did hit her elbow on the floor as well but denies any pain. Patient states after the fall she felt dazed and did have some blurred vision. At the scene patient denies any medical evaluation. While patient was being driven home by family member they decided that she needed to be evaluated. Upon arrival to the ED patient states that all headache has resolved and that she has no change in vision. Patient's only complaint is some muscular tenderness at her shoulders which she describes as being similar to whiplash. Patient denies any associated numbness or weakness. Patient was able to ambulate at the scene. Patient denies any other pain or injury. Related Data Home Medications Medication Instructions Recorded Confirmed metformin 500 mg tablet,extended 2,000 mg PO QPM 07/09/20 07/10/20 release 24 hr donepezil 10 mg tablet (Aricept) 10 mg PO HS 07/10/20 07/10/20 ergocalciferol (vitamin D2) 1,250 1,250 mcg PO WEEKLY 07/10/20 07/10/20 mcg (50,000 unit) capsule escitalopram oxalate 20 mg tablet 20 mg PO 1700 07/10/20 07/10/20 (Lexapro) ezetimibe 10 mg tablet (Zetia) 10 mg PO DAILY 07/10/20 07/10/20 sitagliptin phosphate 100 mg 100 mg PO QAM 07/10/20 07/10/20 tablet (Januvia) solifenacin 10 mg tablet (Vesicare) 10 mg PO DAILY 07/10/20 07/10/20 Allergies Allergy/AdvReac Type Severity Reaction Status Date / Time No Known Allergies Allergy Verified 06/03/22 15:03 Review of Systems Review of Systems: All systems reviewed & are unremarkable except as noted in HPI and below PMFSH Past Medical History Medical History (Updated 06/04/22 @ 18:21 by Braden Billy MD) Diabetes mellitus Obesity Urge incontinence Surgical History Surgical History (Updated 07/10/20 @ 07:39 by Aye Gonzalez DO) History of 3 sections History of tonsillectomy History of tubal ligation Family History Family History (Updated 07/10/20 @ 07:46 by Aye Gonzalez DO) Father Diabetes mellitus Lung cancer Mother Lung cancer Sibling Diabetes mellitus Lung cancer Social History Social History (Updated 07/10/20 @ 07:49 by Aye Gonzalez DO) Social History: She and her are originally from [place]. 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 She has 3 children total. She is a former smoker and smoked a pack per day for 34 years. She quit smoking in 2008. She does not drink alcohol use illicit substances. Smoking packs per day: 1 Smoking cigarettes per day: 20.0 Years smoked: 34 Smoking pack-years: 34.00 Smoking status: Former smoker Tobacco type: cigarettes Alcohol intake: never Substance use: never Substance use type: does not use Gender identity (if verbalized by the patient): Female Spiritual care concerns: No Exam Narrative: APPEARANCE: Well appearing, no pain, no distress, well-nourished. HEAD: normocephalic, atraumatic. EYES: PERRLA/EOMI, conjunctivae clear. NOSE: Normal no drainage NECK: Supple. No adenopathy, no masses. RESPIRATORY: Airway patent, respirations nonlabored. Clear to auscultation bilaterally, no rales, rhonchi, wheezing. CARDIOVASCULAR: Regular rate and rhythm without murmurs rubs or gallops. ABDOMINAL: Soft, nontender, nondistended, normal bowel sounds MUSCULOSKELETAL: Moves all extremities. Strength/ROM intact, No perry
[2022-06-03 16:10] VITALS: BP 129/86; PULSE 89; RESP 20; O2SAT 98
== END 2022-06-03 16:12 | disposition home or self-care (01) ==
PROVIDERS: Emergency Provider Emergency Medicine; PCP Internal Medicine
DX: S09.90XA Unspecified injury of head, initial encounter (principal); E66.9 Obesity, unspecified; Z68.41 Body mass index [BMI] 40.0-44.9, adult; Z87.891 Personal history of nicotine dependence; M47.812 Spondylosis without myelopathy or radiculopathy, cervical region; Z79.84 Long term (current) use of oral hypoglycemic drugs; W07.XXXA Fall from chair, initial encounter
CPT/HCPCS: 70450; 72125; 99284

== ENCOUNTER 2023-03-05 09:49 | Emergency (ER) | payer MEDICARE, MEDICAID, SELFPAY ==
[2023-03-05] VITALS (13 sets, daily range): BP systolic 122–151; BP diastolic 60–84; PULSE 75–102; RESP 11–27; TEMP 36.2; O2SAT 91–100
--- NOTE | ~2023-03-05 | XR_ITS ---
EXAMINATION: XR chest 2V DATE: 03/05/2023 11:37 INDICATION: Cough. TECHNIQUE: Frontal and lateral views of the chest were obtained. COMPARISON: Chest single view 07/13/2020, chest CT 07/09/2020 FINDINGS: There are patchy airspace opacities in right mid and lower lung zones. No pleural effusion or pneumothorax. The heart size is normal. IMPRESSION: 1. Patchy airspace opacities in right mid and lower lung zones, consistent with pneumonia. Reviewed, dictated and finalized at location A. MACHINE OPERATOR
[2023-03-05] MEDS: IPRATROPIUM BR 0.02% INH SOLN 0.5 MG/2.5 ML VIAL INHALATION (11:14)
[2023-03-05] MEDS: ALBUTEROL SULFATE NEB 2.5 MG/3 ML INH INHALATION (11:14)
[2023-03-05 11:25] LABS: Influenza A QL RT-PCR Negative (Negative); Influenza B QL RT-PCR Negative (Negative); RSV RNA, RT-PCR Negative (Negative); SARS-CoV-2 RNA PCR Negative (Negative)
[2023-03-05 11:30] LABS: Basophils Absolute Auto 0.1 K/mm3 (0.0-0.1); Basophils Percent Auto 0.8 % (0.2-1.2); Eosinophils Absolute Auto 0.4 K/mm3 (0-0.3); Hematocrit 42.8 % (37.0-47.0); Hemoglobin 13.5 g/dL (12.0-15.0); Immature Granulocyte Absolute 0.14 K/mm3 (0.00-0.031); Lymphocytes Absolute Auto 2.56 K/mm3 (0.9-3.2); Lymphocytes Percent Auto 18.2 % (18.3-44.2); Mean Corpuscular HGB Conc 31.5 g/dl (32-36); Mean Corpuscular Hemoglobin 29.3 pg (26-34); Mean Corpuscular Volume 92.8 fl (80-100); Mean Platelet Volume 10.6 fl (7.4-10.4); Monocytes Absolute Auto 1.1 K/mm3 (0.1-0.6); Monocytes Percent Auto 7.6 % (2.6-8.5); Neutrophils Absolute Auto 9.7 K/mm3 (1.3-6.7); Neutrophils Percent Auto 69.4 % (45.5-73.1); Platelet Count Result 292 k/mm3 (150-375); Red Blood Count 4.61 M/mm3 (4.2-5.4)
[2023-03-05 11:38] LABS: Alanine Aminotransferase 13 U/L (6-35); Albumin Level 4.2 g/dL (3.5-5.1); Alkaline Phosphatase 108 U/L (38-126); Anion Gap 8 mmol/L (8-16); Aspartate Amino Transferase 16 U/L (14-36); Bilirubin,Total 0.5 mg/dL (0.2-1.3); Blood Urea Nitrogen 16 mg/dL (7-17); Calcium 9.6 mg/dL (8.4-10.2); Carbon Dioxide 27 mmol/L (22-30); Chloride 101 mmol/L (98-107); Estimated CRCL calculation 129 ml/min; Estimated Glomerular Filt Rate > 60; Glucose 304 mg/dL (65-110); Potassium 4.6 mmol/L (3.4-5.0); Sodium 136 mmol/L (137-145)
--- NOTE | 2023-03-05 11:58 | ED.GENADULT ---
HPI - General Adult General Chief complaint: Upper Respiratory Infection Stated complaint: UPPER RESP FOR PAST MONTH Time Seen by Provider: 03/05/23 10:23 History of Present Illness HPI narrative: Patient is a 68-year-old female who presents ER with cough and shortness of breath. Ongoing for 1 month. Subjective fevers and chills. No sinus congestion or sore throat. she has been trying [id number] remedies without improvement. No chest pain. She feels like she is wheezing. Related Data Home Medications Medication Instructions Recorded Confirmed metformin 500 mg tablet,extended 2,000 mg PO QPM 07/09/20 07/10/20 release 24 hr donepezil 10 mg tablet (Aricept) 10 mg PO HS 07/10/20 07/10/20 ergocalciferol (vitamin D2) 1,250 1,250 mcg PO WEEKLY 07/10/20 07/10/20 mcg (50,000 unit) capsule escitalopram oxalate 20 mg tablet 20 mg PO 1700 07/10/20 07/10/20 (Lexapro) ezetimibe 10 mg tablet (Zetia) 10 mg PO DAILY 07/10/20 07/10/20 sitagliptin phosphate 100 mg 100 mg PO QAM 07/10/20 07/10/20 tablet (Januvia) solifenacin 10 mg tablet (Vesicare) 10 mg PO DAILY 07/10/20 07/10/20 Allergies Allergy/AdvReac Type Severity Reaction Status Date / Time No Known Allergies Allergy Verified 03/05/23 14:47 Review of Systems Review of Systems: All systems reviewed & are unremarkable except as noted in HPI and below Constitutional: Constitutional: Denies chills, Reports fatigue and Denies fever(s) ENT: Denies nasal congestion and Denies sore throat Cardiovascular: Cardiovascular: Denies chest pain, Denies rapid heart rate and Denies radiating jaw, neck or arm pain Respiratory: Respiratory: Reports chest congestion, Reports cough, Reports dyspnea and Reports wheezing Gastrointestinal: Gastrointestinal: Reports no additional gastrointestinal complaints Musculoskeletal: Musculoskeletal: Reports no additional musculoskeletal complaints PMF Past Medical History Medical History Diabetes mellitus Obesity Urge incontinence Surgical History Surgical History History of 3 sections History of tonsillectomy History of tubal ligation Family History Family History Father Diabetes mellitus Lung cancer Mother Lung cancer Sibling Diabetes mellitus Lung cancer Social History Social History (System 03/05/23 @ 14:47 by Nora Callejas) Social History: She and her are originally from [place]. 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 She has 3 children total. She is a former smoker and smoked a pack per day for 34 years. She quit smoking in 2008. She does not drink alcohol use illicit substances. Smoking packs per day: 1 Smoking cigarettes per day: 20.0 Years smoked: 34 Smoking pack-years: 34.00 Smoking status: Former smoker Tobacco type: cigarettes Alcohol intake: never Substance use: never Substance use type: does not use Gender identity (if verbalized by the patient): Female Spiritual care concerns: No Exam Narrative: GENERAL: Well-appearing, well-nourished, and in no acute distress. HEAD: Normocephalic, atraumatic. ENT: Mucous membranes moist. NECK: Supple. CHEST: Clear to auscultation. No respiratory distress. HEART: Regular rate and rhythm. Normal peripheral pulses. ABDOMEN: Soft, nontender, nondistended. EXTREMITIES: Normal range of motion. No edema. SKIN: Warm, dry, no rash. NEURO: No focal deficits. Alert and oriented x3. PSYCH: Normal mood and affect. Course Vital Signs Vital signs: Vital Signs Temperature 97.1 F L 03/05/23 10:02 Pulse Rate 85 03/05/23 10:02 Respiratory Rate 16 03/05/23 10:02 Blood Pressure 122/60 03/05/23 10:02 Pulse Oximetry 94
== END 2023-03-05 13:59 | disposition home or self-care (01) ==
PROVIDERS: Physician Assistant; Emergency Provider Emergency Medicine; PCP Internal Medicine
DX: J18.9 Pneumonia, unspecified organism (principal); Z20.822 Contact with and (suspected) exposure to COVID-19; E11.9 Type 2 diabetes mellitus without complications; R32 Unspecified urinary incontinence; E66.9 Obesity, unspecified; Z68.41 Body mass index [BMI] 40.0-44.9, adult; Z79.84 Long term (current) use of oral hypoglycemic drugs
CPT/HCPCS: 36415; 71046; 80053; 85025; 87637; 94640; 99283

== ENCOUNTER 2023-03-11 11:19 | Emergency (ER) | payer MEDICARE, MEDICAID, SELFPAY ==
[2023-03-11] VITALS (23 sets, daily range): BP systolic 112–144; BP diastolic 57–78; PULSE 67–79; RESP 14–24; TEMP 36.4; O2SAT 91–97
--- NOTE | ~2023-03-11 | XR_ITS ---
EXAMINATION: XR chest 1V portable DATE: 03/11/2023 16:08 INDICATION: Cough. Shortness of breath. TECHNIQUE: A single frontal view of the chest was obtained. COMPARISON: Chest 2 views 03/05/2023, chest CT 07/09/2020 FINDINGS: There are mild airspace opacities in right mid and lower lung zones with interval improveme nt. No pleural effusion or pneumothorax. The heart size is normal. IMPRESSION: 1. Mild airspace opacities in right mid and lower lung zones with interval improvement, consistent wi th pneumonia. Reviewed, dictated and finalized at location E. R DIRECTOR IMPRESSION: 1. Mild airspace opacities in right mid and lower lung zones with interval impr ovement, consistent with pneumonia.
--- NOTE | 2023-03-11 12:58 | ECG_ITS ---
Measurements Intervals [place] Rate: 69 P: 76 [place]: 154 QRS: 41 QRSD: 99 T: 48 QT: 401 QTc: 431 Interpretive Statements SINUS RHYTHM WITH MARKED SINUS ARRHYTHMIA COMPARED TO ECG 07/09/2020 18:00:19 SINUS ARRHYTHMIA NOW PRESENT Electronically Signed On 03-11-2023 13:58:46 PLATEN PRESS OPERATOR APPRENTICE by Saima East M.D.
[2023-03-11] MEDS: SODIUM CHLORIDE 0.9% IV 1,000 ML 999 ML IV CONT (13:14)
[2023-03-11] MEDS: BENZONATATE 100 MG CAPSULE PO (13:18)
[2023-03-11 13:30] LABS: Basophils Absolute Auto 0.1 K/mm3 (0.0-0.1); Basophils Percent Auto 1.1 % (0.2-1.2); Eosinophils Absolute Auto 0.3 K/mm3 (0-0.3); Eosinophils Percent Auto 2.8 % (0-4.4); Hematocrit 41.6 % (37.0-47.0); Hemoglobin 13.4 g/dL (12.0-15.0); Immature Granulocyte Absolute 0.15 K/mm3 (0.00-0.031); Immature Granulocyte Percent A 1.3 % (0-0.5); Lymphocytes Absolute Auto 2.72 K/mm3 (0.9-3.2); Lymphocytes Percent Auto 23.9 % (18.3-44.2); Mean Corpuscular HGB Conc 32.2 g/dl (32-36); Mean Corpuscular Hemoglobin 29.8 pg (26-34); Mean Corpuscular Volume 92.4 fl (80-100); Mean Platelet Volume 10.4 fl (7.4-10.4); Monocytes Absolute Auto 0.8 K/mm3 (0.1-0.6); Monocytes Percent Auto 7.3 % (2.6-8.5); Neutrophils Absolute Auto 7.3 K/mm3 (1.3-6.7); Neutrophils Percent Auto 63.6 % (45.5-73.1); Platelet Count Result 511 k/mm3 (150-375); Red Cell Distribution Width 12.9 % (11.5-14.5); White Blood Count 11.4 K/mm3 (4.5-10.0)
[2023-03-11 13:39] LABS: Alanine Aminotransferase 16 U/L (6-35); Albumin Level 4.2 g/dL (3.5-5.1); Alkaline Phosphatase 93 U/L (38-126); Anion Gap 5 mmol/L (8-16); Aspartate Amino Transferase 22 U/L (14-36); Bilirubin,Total 0.3 mg/dL (0.2-1.3); Blood Urea Nitrogen 17 mg/dL (7-17); Calcium 9.4 mg/dL (8.4-10.2); Carbon Dioxide 30 mmol/L (22-30); Chloride 101 mmol/L (98-107); Estimated CRCL calculation 105 ml/min; Estimated Glomerular Filt Rate > 60; Glucose 288 mg/dL (65-110); Potassium 4.7 mmol/L (3.4-5.0); Sodium 136 mmol/L (137-145)
--- NOTE | 2023-03-11 13:52 | ED.URI ---
HPI - URI/Sore Throat General Chief Complaint: Upper Respiratory Infection Stated Complaint: cough Time Seen by Provider: 03/11/23 12:21 History of Present Illness HPI Narrative: patient presents the emergency department with her daughter. Concern for persistent cough and now mild increased shortness of breath. Patient was seen in her video specialist's office today and sent to the emergency department because they were told her oxygen was 90% on room air. Patient was diagnosed with bacterial pneumonia couple weeks ago sent home with antibiotics. However her symptoms have not improved. She denies chest pain. Overall she is feeling generally weak. Daughter contribute to the history as well Related Data Home Medications Medication Instructions Recorded Confirmed metformin 500 mg tablet,extended 2,000 mg PO QPM 07/09/20 07/10/20 release 24 hr donepezil 10 mg tablet (Aricept) 10 mg PO HS 07/10/20 07/10/20 ergocalciferol (vitamin D2) 1,250 1,250 mcg PO WEEKLY 07/10/20 07/10/20 mcg (50,000 unit) capsule escitalopram oxalate 20 mg tablet 20 mg PO 1700 07/10/20 07/10/20 (Lexapro) ezetimibe 10 mg tablet (Zetia) 10 mg PO DAILY 07/10/20 07/10/20 sitagliptin phosphate 100 mg 100 mg PO QAM 07/10/20 07/10/20 tablet (Januvia) solifenacin 10 mg tablet (Vesicare) 10 mg PO DAILY 07/10/20 07/10/20 Allergies Allergy/AdvReac Type Severity Reaction Status Date / Time No Known Allergies Allergy Verified 03/11/23 12:12 Review of Systems Review of Systems: negative except what is documented in the HPI [facility] Past Medical History Medical History Diabetes mellitus Obesity Urge incontinence Surgical History Surgical History History of 3 sections History of tonsillectomy History of tubal ligation Family History Family History Father Diabetes mellitus Lung cancer Mother Lung cancer Sibling Diabetes mellitus Lung cancer Social History Social History (System 03/05/23 @ 14:47 by Nora Callejas) Social History: She and her are originally from [place]. 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 She has 3 children total. She is a former smoker and smoked a pack per day for 34 years. She quit smoking in 2008. She does not drink alcohol use illicit substances. Smoking packs per day: 1 Smoking cigarettes per day: 20.0 Years smoked: 34 Smoking pack-years: 34.00 Smoking status: Former smoker Tobacco type: cigarettes Alcohol intake: never Substance use: never Substance use type: does not use Gender identity (if verbalized by the patient): Female Spiritual care concerns: No Exam Narrative: GENERAL: Well-appearing, well-nourished, and in no acute distress. HEAD: Normocephalic, atraumatic. EYES: PERRLA and EOMI. ENT: Nares clear, no rhinorrhea or epistaxis. Mucous membranes moist. NECK: Supple. CHEST: Clear to auscultation. No respiratory distress. HEART: Regular rate and rhythm. ABDOMEN: Soft, nontender, nondistended. EXTREMITIES: Normal range of motion. No edema. SKIN: Warm, dry, no rash. NEURO: No focal deficits. Alert and oriented x3. PSYCH: Normal mood and affect. Course Course Emergency Course: differential diagnosis includes but not limited to pneumonia, urinary tract infection, CHF exacerbation labs and chest x-ray ordered. Vital signs stable including oxygen saturation Vital Signs Vital signs: Vital Signs Temperature 36.4 C 03/11/23 11:21 Pulse Rate 79 03/11/23 11:21 Respiratory Rate 20 03/11/23 11:21 Blood Pressure 137/62 03/11/23 11:21 Pulse Oximetry 96 03/11/23 11:21 Temperature 36.4 C 03/11/23 11:21 Pulse Rate 73 03/11/23 16:13 Re
[2023-03-11 13:58] LABS: NT Pro B Type Natriuretic Pept 73 pg/mL (19.9-100); Troponin I < 0.012 ng/mL (0.000-0.034)
[2023-03-11 14:08] LABS: Influenza A QL RT-PCR Negative (Negative); Influenza B QL RT-PCR Negative (Negative); RSV RNA, RT-PCR Negative (Negative); SARS-CoV-2 RNA PCR Negative (Negative)
[2023-03-11 15:30] LABS: Appearance Urine Clear (Clear); Bilirubin Urine Negative (Negative); Blood Urine Negative (Negative); Color Urine Yellow (Yellow); Glucose Urine UA 3+ mg/dL (Negative); Ketones Urine Negative (Negative); Leukocyte Esterase Ur Negative LEU/UL (Negative); Nitrate Urine Negative (Negative); Protein Urine Negative (Negative); Urobilinogen Urine 0.2 mg/dL (<2.0); pH Urine 5.5 (5.0-9.0)
[2023-03-11 15:35] LABS: Add Urine Microscopic? NO; Specific Grav Ur 1.037 (1.001-1.035)
[2023-03-11 16:57] LABS: Troponin I < 0.012 ng/mL (0.000-0.034)
== END 2023-03-11 17:16 | disposition home or self-care (01) ==
PROVIDERS: Emergency Provider Emergency Medicine; PCP Internal Medicine
DX: J18.9 Pneumonia, unspecified organism (principal); Z20.822 Contact with and (suspected) exposure to COVID-19; E11.9 Type 2 diabetes mellitus without complications; Z79.84 Long term (current) use of oral hypoglycemic drugs; R06.02 Shortness of breath
CPT/HCPCS: 36415; 71045; 80053; 81003; 83880; 84145; 84484; 85025; 87637; 93005; 96360; 99284; A9270; J7030

== ENCOUNTER 2023-07-14 01:46 | Day surgery (SDC) | payer MEDICARE, SELFPAY ==
[2023-07-11 13:30] VITALS: BMI 39.0
[2023-07-14] VITALS (10 sets, daily range): BP systolic 110–137; BP diastolic 53–72; PULSE 69–79; RESP 16–20; TEMP 36.3–36.5; O2SAT 90–94
[2023-07-14] MEDS: SODIUM CHLORIDE 0.9% IV 500 ML 100 ML IV CONT (09:00)
[2023-07-14 09:15] LABS: Anion Gap 4 mmol/L (4-12); Blood Urea Nitrogen 20 mg/dL (7-17); Calcium 9.6 mg/dL (8.4-10.2); Carbon Dioxide 30 mmol/L (22-30); Chloride 101 mmol/L (98-107); Estimated CRCL calculation 127 ml/min; Estimated Glomerular Filt Rate > 60; Glucose 257 mg/dL (65-110); Potassium 4.4 mmol/L (3.4-5.0); Sodium 135 mmol/L (137-145)
--- NOTE | 2023-07-14 09:24 | WPDMODSED ---
Moderate Sedation Note-Pt Data Patient Data Diagnosis: Left ventricular systolic dysfunction Diabetes Obesity Dyslipidemia Present Complaint: No complaint Procedure to be performed/Plan: Left heart catheterization Allergies Allergy/AdvReac Type Severity Reaction Status Date / Time No Known Allergies Allergy Verified 07/14/23 08:42 Home Medications Medication Instructions Recorded Confirmed Type metformin 500 mg tablet,extended 2,000 mg PO QPM 07/09/20 07/11/23 History release 24 hr donepezil 10 mg tablet (Aricept) 10 mg PO HS 07/10/20 07/11/23 History ergocalciferol (vitamin D2) 1,250 1,250 mcg PO WEEKLY 07/10/20 07/11/23 History mcg (50,000 unit) capsule escitalopram oxalate 20 mg tablet 20 mg PO 1700 07/10/20 07/11/23 History (Lexapro) ezetimibe 10 mg tablet (Zetia) 10 mg PO DAILY 07/10/20 07/11/23 History sitagliptin phosphate 100 mg 100 mg PO QAM 07/10/20 07/11/23 History tablet (Januvia) solifenacin 10 mg tablet (Vesicare) 10 mg PO DAILY 07/10/20 07/11/23 History albuterol sulfate 90 mcg/actuation 2 puff inhalation Q6HRT PRN 07/14/20 07/11/23 Rx aerosol inhaler (Proventil HFA) Shortness Of Breath #1 inh benzonatate 100 mg capsule 100 mg PO TID PRN cough #20 caps 03/11/23 07/11/23 Rx atorvastatin 20 mg tablet 20 mg PO DAILY 07/11/23 07/11/23 History celecoxib 200 mg capsule 200 mg PO DAILY 07/11/23 07/11/23 History dapagliflozin propanediol 10 mg 10 mg PO DAILY 07/11/23 07/11/23 History tablet (Farxiga) furosemide 40 mg tablet 40 mg PO DAILY 07/11/23 07/11/23 History fvijn-etc-IN-I8-of4-tug-epa-fish 1 tablet PO DAILY 07/11/23 07/11/23 History oil 200 mcg-1,000 unit-25 mg tab,chew pioglitazone 15 mg tablet 15 mg PO DAILY 07/11/23 07/11/23 History semaglutide 0.25 mg or 0.5 mg (2 0.25 mg subcut WEEKLY 07/11/23 07/11/23 History mg/3 mL) subcutaneous pen injector (Ozempic) Current Medications: Active Medications Sodium Chloride (Normal Saline Iv) 500 mls @ 100 mls/hr IV CONT .Q5H ANAT Sedation/Anesthesia: No previous sedation/anesthesia problems (including family history). [facility] Past Medical History Medical History Diabetes mellitus Obesity Urge incontinence Surgical History Surgical History History of 3 sections History of tonsillectomy History of tubal ligation Family History Family History Father Diabetes mellitus Lung cancer Mother Lung cancer Sibling Diabetes mellitus Lung cancer Social History Social History (System 03/05/23 @ 14:47 by Nora Callejas) Social History: She and her are originally from [place]. 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 She has 3 children total. She is a former smoker and smoked a pack per day for 34 years. She quit smoking in 2008. She does not drink alcohol use illicit substances. Smoking packs per day: 1 Smoking cigarettes per day: 20.0 Years smoked: 34 Smoking pack-years: 34.00 Smoking status: Former smoker Tobacco type: cigarettes Second hand tobacco smoke exposure: No Alcohol intake: never Substance use: former Substance use type: does not use Living arrangements: with family Gender identity (if verbalized by the patient): Female Spiritual care concerns: No Mod Sed Physical Exam Physical Exam Pre Procedural Exam: Normal: Neck, Throat, Airway, Lungs, Heart Rate, Heart Rhythm, Neuro Exam and Extremities and Variation: Appearance (Obese white female, no distress) and Heart Size (PMI not palpable) Hours since solid foods: 12 Hours since liquid intake: 12 Mallampati Classification: class III Internal Medicine - PN: Obj Da Meds/Results Medications: Active Medications Generic Name Dos
[2023-07-14 09:30] LABS: Basophils Absolute Auto 0.1 K/mm3 (0.0-0.1); Basophils Percent Auto 0.9 % (0.2-1.2); Eosinophils Absolute Auto 0.3 K/mm3 (0-0.3); Eosinophils Percent Auto 3.6 % (0-4.4); Hematocrit 43.9 % (37.0-47.0); Immature Granulocyte Absolute 0.06 K/mm3 (0.00-0.031); Immature Granulocyte Percent A 0.6 % (0-0.5); Lymphocytes Absolute Auto 2.39 K/mm3 (0.9-3.2); Lymphocytes Percent Auto 25.1 % (18.3-44.2); Mean Corpuscular HGB Conc 31.9 g/dl (32-36); Mean Corpuscular Hemoglobin 29.7 pg (26-34); Mean Corpuscular Volume 93.2 fl (80-100); Mean Platelet Volume 11.1 fl (7.4-10.4); Monocytes Absolute Auto 0.8 K/mm3 (0.1-0.6); Monocytes Percent Auto 8.4 % (2.6-8.5); Neutrophils Absolute Auto 5.9 K/mm3 (1.3-6.7); Neutrophils Percent Auto 61.4 % (45.5-73.1); Platelet Count Result 270 k/mm3 (150-375); Red Blood Count 4.71 M/mm3 (4.2-5.4); Red Cell Distribution Width 13.4 % (11.5-14.5); White Blood Count 9.5 K/mm3 (4.5-10.0)
--- NOTE | 2023-07-14 10:32 | WPDCARDPROC ---
Cardiac Cath Procedure Note Date of procedure:: 07/14/23 Performing physician:: Shant Singh MD Indication:: Lower extremity edema mild left ventricular systolic dysfunction by echo dyslipidemia non insulin-dependent diabetes Brief clinical history:: this is a 68-year-old woman with risk factors for coronary disease but no personal history of coronary disease. She has been evaluated by her physician because of edema. Echocardiogram was interpreted as showing modest LV enlargement with low normal ejection fraction. To exclude ischemic heart disease angiography has been scheduled for today. She is not reporting any anginal-type chest pain. Procedure Procedure performed:: Coronary angiography left ventriculography Angio-Seal to right femoral artery Sedation/Medication given:: fentanyl 50 mg Versed 2 mg case start time 10:14 a.m. case end time 10:29 a.m. sedation provided by Sherlyn Sawyer RN, trained observer Access site:: right femoral artery Estimated blood loss:: 20 cc Procedure note:: patient was brought to the cardiac catheterization lab in the postabsorptive state where the right femoral triangle was prepared and draped in normal fashion. Anesthesia was provided with 1% lidocaine infiltrated locally. Using the modified Seldinger technique a 5 Algerian sheath was placed into the right femoral artery. After this left heart catheterization was carried out. A 5 Algerian angled pigtail catheter was used to perform left ventriculography in the 30 degree HALE projection as well as to document left-sided hemodynamics. Following this a standard 5 Algerian FL4 catheter was engage and inject the left coronary artery in multiple projections. A 5 Algerian JR4 catheter was then used to selectively engage and inject the right coronary artery in orthogonal projections. Following this the case was terminated a an Angio-Seal device was deployed at the site of the femoral artery puncture following an angiogram being done through the sheath. There was good hemostasis after deployment of the device. There were no procedural complications and she left the blood bank laboratory professional with no evidence of groin hematoma. Findings:: Hemodynamics: Central aortic pressure is 130 over 56 left ventricle 130 over to end-diastolic pressure 14 there is no gradient on pullback across the valve. Left ventricle: The LV is normal in size all segments contract appropriately the global ejection fraction I visually estimate to be 55-60%. There were no regional wall motion abnormalities. The left main coronary artery is widely patent the left anterior descending is a moderate to large caliber vessel extending down to the apex the LAD and its branches are smooth and angiographically normal in appearance S circumflex is a moderate to large caliber artery giving rise to the marginal branches. The circumflex is also smooth and angiographically normal in appearance the right coronary artery is large in caliber and dominant to the posterior circulation. The right coronary artery is smooth and angiographically normal in appearance Conclusion:: 1. right coronary dominant circulation with no evidence of coronary artery disease 2. normal left ventricular systolic function and normal left-sided hemodynamics Shant Singh MD [facility]
== END 2023-07-14 14:20 | disposition home or self-care (01) ==
PROVIDERS: PCP Internal Medicine; Visit Provider Specialist
PROC: 4A023N7 Measurement of Cardiac Sampling and Pressure, Left Heart, Percutaneous Approach (ICD-10-PCS; CPT 93452; principal; 2023-07-14 10:00)
DX: R93.1 Abnormal findings on diagnostic imaging of heart and coronary circulation (principal); E11.9 Type 2 diabetes mellitus without complications; E78.5 Hyperlipidemia, unspecified; N39.41 Urge incontinence; E66.9 Obesity, unspecified; Z68.39 Body mass index [BMI] 39.0-39.9, adult; Z79.84 Long term (current) use of oral hypoglycemic drugs; Z79.51 Long term (current) use of inhaled steroids; Z79.85 Long-term (current) use of injectable non-insulin antidiabetic drugs; Z87.891 Personal history of nicotine dependence; Z80.1 Family history of malignant neoplasm of trachea, bronchus and lung
CPT/HCPCS: 36415; 80048; 85025; 93458; C1760; C1887; C1894; G0269; J1644; J2250; J3010; J7040

== ENCOUNTER 2024-01-29 11:39 | Outpatient (CLI) | payer MEDICARE, SELFPAY ==
--- NOTE | ~2024-01-29 | MMUS_ITS ---
EXAMINATION: MM diagnostic donte BI w kristal, US breast BI limited HISTORY: Follow-up bilateral breast asymmetries. TECHNIQUE: Additional 3-D tomosynthesis images of the breasts were performed and synthetic 2-D images were generated. CAD analysis was submitted and interpreted. High resolution Limited left breast ultr asound was performed. COMPARISON: None BREAST PARENCHYMAL COMPOSITION: Not dense: There are scattered areas of fibroglandular density. FINDINGS: MAMMOGRAPHIC FINDINGS: There is no mammographic evidence for malignancy in the right breast. There is a mass in the lower ou ter quadrant of the left breast, middle third. There are intramammary lymph nodes in the upper outer quadrant of the left breast. There is no architectural distortion or suspicious calcification. ULTRASOUND: Limited right breast ultrasound: Normal heterogeneous echotexture without focal mass. Limited left breast ultrasound: At 4:00, 5 cm from the nipple there is an irregular shaped hypoechoic mass measuring 11 x 9 x 8 mm with no significant posterior features. There is internal vascularity. IMPRESSION: 1. Irregular shaped hypoechoic 11 mm mass of the left breast at 4:00, 5 cm from the nipple. This cori esponds to the mammographic abnormality. 2. Ultrasound-guided left breast biopsy recommended. BI-RADS category 4, suspicious findings. Reviewed, dictated and finalized at location B. TRAINER IMPRESSION: 1. Irregular shaped hypoechoic 11 mm mass of the left breast at 4:00, 5 cm from the nipple. This corresponds to the mammographic abnormality. 2. Ultrasound-guided left breast biopsy recommended. BI-RADS category 4, suspicious findings.
--- NOTE | ~2024-01-29 | XR_ITS ---
EXAMINATION: XR chest 2V 01/29/2024 12:01 INDICATION: History of pneumonia PROCEDURE: 2 view chest COMPARISON: Comparison to multiple prior studies sequentially, with oldest reviewed study dated 07/09. FINDINGS: The lungs are clear. The cardiomediastinal silhouette is within normal limits. There are no pleural effusions. There is no pneumothorax suspected. IMPRESSION: 1: NO ACUTE CARDIOPULMONARY DISEASE. Reviewed, dictated and finalized at location B. E EXCURSION
== END 2024-01-29 11:40 | disposition home or self-care (01) ==
PROVIDERS: PCP Internal Medicine Infectious Disease; Visit Provider Internal Medicine Infectious Disease
DX: R92.8 Other abnormal and inconclusive findings on diagnostic imaging of breast (principal); Z87.01 Personal history of pneumonia (recurrent)
CPT/HCPCS: 71046; 76642; 77062; 77066; G0279

== ENCOUNTER 2024-02-26 07:50 | Outpatient (CLI) | payer MEDICARE, SELFPAY ==
--- NOTE | ~2024-02-26 | MMUS_ITS ---
US breast biopsy LT w image, MM post biopsy diagnostic LT EXAMINATION: US GUIDED NEEDLE BIOPSY WITH VACUUM ASSISTANCE DATE: 02/26/2024 09:07 FLOOR COVERING CONTRACTOR INDICATION: Left breast mass seen on prior examination Ultrasound-guided core biopsy is requested to evaluate for malignancy. BREAST PARENCHYMAL COMPOSITION: Not dense: There are scattered areas of fibroglandular density. TECHNIQUE AND FINDINGS: The risks and potential benefits of the procedure were discussed with the patient, and written inform ed consent was obtained. After sterile preparation of the left breast, 1% lidocaine was utilized for local anesthesia. 1% lidocaine with epinephrine was used for deep anesthesia. A 10G vacuum-assisted biopsy gun needle was advanced through to the outer edge of the region of inter est from a lateral approach utilizing sonographic guidance. A total of 4 tissue core samples were ob tained through the lesion. An Inrad tissue marker clip was then placed at the biopsy site. Hemostasi s was achieved. The patient tolerated procedure well and there was no evidence of immediate complication. The patien t was given verbal instructions partly is from the department. Left breast mammograms to document ti ssue marker clip placement. The tissue samples were submitted to surgical pathology for histologic an alysis. IMPRESSION: 1. Successful ultrasound-guided vacuum-assisted biopsy of left breast mass with post procedure mammo gram for marker placement. Please refer to pathology report for histologic analysis. Reviewed, dictated and finalized at location B. R COVERING CONTRACTOR IMPRESSION: 1. Successful ultrasound-guided vacuum-assisted biopsy of left breast mass wit h post procedure mammogram for marker placement. Please refer to pathology repo rt for histologic analysis.
== END 2024-02-26 07:51 | disposition home or self-care (01) ==
PROVIDERS: PCP Internal Medicine Infectious Disease; Visit Provider Internal Medicine Infectious Disease
DX: R92.8 Other abnormal and inconclusive findings on diagnostic imaging of breast (principal)
CPT/HCPCS: 19083; 77065; 88305; 88342; A4648

== ENCOUNTER 2024-12-23 20:18 | Emergency (ER) | payer MEDICARE, SELFPAY ==
[2024-12-23] VITALS (11 sets, daily range): BP systolic 121–148; BP diastolic 55–70; PULSE 76–93; RESP 15–22; TEMP 36.3; O2SAT 88–96
--- NOTE | ~2024-12-23 | XR_ITS ---
Examination: XR chest 2V Clinical History: cough Comparison: 01/29/2024 Technique: PA and Lateral Findings: Cardiomediastinal silhouette normal size and configuration. Lungs clear. No acute bony abnormality. IMPRESSION: 1. No acute cardiopulmonary findings. Reviewed, dictated and finalized at location R.
--- NOTE | ~2024-12-23 | CT_ITS ---
EXAMINATION: CT diagnostic chest w con, 12/23/2024 23:20 CDT HISTORY: cough, congestion; CXR negative; hypoxia COMPARISON: Comparison 07/09/2020. TECHNIQUE: CT scan of the chest was performed with contrast. Isovue 300, 92cc injected IV. One or more of the following dose reduction techniques were used: automated exposure control, adjustment of the mA and/or kV according to patient size, use of iterative reconstruction technique. FINDINGS: No significant coronary calcification is present ([id number]) LUNGS: No tracheomalacia. No bronchiectasis. Mild bronchial wall thickening. Minimal emphysematous changes. No areas of bullous formation noted. Left lower lobe 4 mm micronodule. Minimal pulmonary fibrotic changes. No honeycombing identified. Right lower lobe there is a 6 mm micronodule. Additional scattered sub-3 mm micronodules. HEART AND PERICARDIUM: Within normal limits. AORTA: Normal caliber aorta. ADENOPATHY/MEDIASTINUM: None. LIMITED VIEWS OF THE ABDOMEN: Within normal limits. OSSEOUS STRUCTURES: No sclerotic or lytic lesions. No acute rib fractures are identified. OVERLYING SOFT TISSUES: Unremarkable. THYROID: The thyroid is unremarkable. IMPRESSION: 1. No acute process. 2. Bilateral micronodules some of which are stable on this appears new compared to the prior study. Six-month follow-up recommended to assess. Reviewed, dictated and finalized at location P.
--- OUTSIDE RECORDS SUMMARY | 2024-12-23 20:20 | XMS_ITS | Encounter Summary ---
Author Organization [facility] Health Address [address] [place] [address] Care Team Providers Care Geospatial Scientist Name Role Phone Unavailable Primary Care Provider Unavailabl e Prior Encounters Date Type Department Care Team Description 07/15/2023 Refill [facility] [address] [place] [phone] Anthony Huber DDS 01/10/2023 Telephone [facility] [address] [place] [phone] Anthony Huber DDS 01/09/2023 1:00 PM CDT Office Visit [facility] [address] [place] [phone] Anthony Huber DDS Last Filed Vital Signs Vital Sign Reading Time Taken Comments Blood Pressure 136/70 01/09/2023 2:16 PM CDT Pulse - - Temperature - - Respiratory Rate - - Oxygen Saturation - - Inhaled Oxygen Concentration - - Weight - - Height - - Body Mass Index - - Plan of Treatment Not on file Procedures Procedure Name Priority Date/Time Associated Diagnosis Comments 13 BONE REPLACEMENT GRAFT FOR RIDGE PRESERVATION - PER SITE - MAXILLARY Routine 01/09/2023 1:00 PM CDT 31 GUIDED TISSUE REGENERATION,NATURAL TEETH - NONRESORBABLE BARRIER, PER SITE Routine 01/09/2023 1:00 PM CDT 31 EXTRACTION, ERUPTED TOOTH REQUIRING REMOVAL OF BONE AND/OR SECTIONING OF TOOTH Routine 01/09/2023 1:00 PM CDT PANORAMIC RADIOGRAPHIC IMAGE Routine 01/09/2023 1:00 PM CDT BITEWING - SINGLE RADIOGRAPHIC IMAGE Routine 01/09/2023 1:00 PM CDT ADDITIONAL X-RAY Routine 01/09/2023 1:00 PM CDT LIMITED ORAL EVALUATION - PROBLEM FOCUSED Routine 01/09/2023 1:00 PM CDT SINGLE X-RAY Routine 01/09/2023 1:00 PM CDT Visit Diagnoses Not on file Insurance O
--- OUTSIDE RECORDS SUMMARY | 2024-12-23 20:20 | XMS_ITS | Clinical Summary ---
Author Organization [facility] Health Address [id number] [place] [id number] Care Team Providers Care Accounting Administrator Name Role Phone Unavailable Primary Care Provider Unavailabl e Medications No known medications Active Problems No known active problems Social History Tobacco Use Types Packs/Day Years Used Date Smoking Tobacco: Never Assessed Comments Unknown Sex and Gender Information Value Date Recorded Sex Assigned at Not on file Legal Sex Female 12:09 PM PDT Gender Identity Not on file Sexual Orientation Not on file Last Filed Vital Signs Vital Sign Reading Time Taken Comments Blood Pressure 136/70 01/09/2023 2:16 PM CDT Pulse - - Temperature - - Respiratory Rate - - Oxygen Saturation - - Inhaled Oxygen Concentration - - Weight - - Height - - Body Mass Index - - Plan of Treatment Health Maintenance Due Date Last Done Comments Dental Oral Exam 1957 Dental Prophylaxis 1957 Dental X-Ray: Bitewings 1955 Dental X-Ray: Full Mouth 1957 Dental X-Ray: Panoramic 01/10/2026 01/09/2023 Procedures Procedure Name Priority Date/Time Associated Diagnosis Comments PANORAMIC RADIOGRAPHIC IMAGE Routine 01/09/2023 1:00 PM CDT from Last 3 Months or Most Recently Relevant to Health Maintenance Insurance [facility] PPO
--- OUTSIDE RECORDS SUMMARY | 2024-12-23 20:20 | XMS_ITS | Encounter Summary ---
Author Organization [facility] Health Address [address] [place] [address] Care Team Providers Care Senior Net Web Developer Name Role Phone Unavailable Primary Care Provider Unavailabl e Reason for Visit * Reason Comments Med Refill Encounter Details Date Type Department Care Team (Late st Contact Info) Description 07/15/2023 Refill [facility] [address] [place] [phone] Anthony Huber, DDS [address] [place] [address] Social History Tobacco Use Types Packs/Day Years Used Date Smoking Tobacco: Never Assessed Comments Unknown Sex and Gender Information Value Date Recorded Sex Assigned at Not on file Legal Sex Female 12:09 PM PDT Gender Identity Not on file Sexual Orientation Not on file documented as of this encounter Plan of Treatment Not on file documented as of this encounter Visit Diagnoses Not on filedocumented in this encounter
--- OUTSIDE RECORDS SUMMARY | 2024-12-23 20:21 | XMS_ITS | Data Portability ---
Author Organization [place] - [facility], Main Office Address [address] [place] [address] Care Team Providers Care Sales Account Representative Name Role Phone KAY MELVIN Primary Care Provider [phone] KAY MELVIN Referring Provider [phone] Assessment Encounter Date Assessment Date Assessment LastModified by Organization Details LastModified Time 05/25/2024 05/25/2024 This note is dic tated and transcribed by [employer]. Chief Supply Chain Officer variances may occur. Despite proofreading, typographical errors may occur. Occasional wrong-word or '[id number]' substitutions may have occurred due to the inherent limitations of voice recording. Read the chart carefully and recognize, using context, where substitutions have occurred. [email or web address] Not available 05/25/2024 12:46:16 06/08/2024 06/08/2024 The patient has severe primary osteoarthritis right knee moderately severe left. Right knee hurts worse than left also. At her request under sterile conditions I injected both knee joints in the office today with 4 cc of 0.5% bupivacaine and 20 mg of Kenalog each. The patient tolerated the procedures well. I will see her back as needed we can do this again in 3 months if necessary. We also talked about viscosupplementation injections today she has never had those if the cortisone is not giving her the relief she is looking for we could try that. She was given a brochure on this today we talked about it in detail she is going to think about it she will see how these round of cortisone goes she will call us when she is ready to do 1 or the other. She voiced understanding and agrees with the above plan. Not available 06/08/2024 09:54:32 09/07/2024 09/07/2024 The patient has moderately severe primary osteoarthritis both knees right a bit worse than left. At her request under sterile conditions I injected both knee joints in the office today with 4 cc of 0.5% bupivacaine and 20 mg of Kenalog each. The patient tolerated both injections well. I will see her back in 6-8 weeks if she is hurting we will proceed with gel shots both knees. She has not had those previously we will try those see if she gets better relief and more detention relief. She voiced understanding and agreed with the above plan she will call for any further problems difficulties or questions. Not available 09/07/2024 09:45:09 12/07/2024 12/07/2024 The patient has severe primary osteoarthritis both knees right worse than left. Under sterile conditions at her request I injected both knee joints in the office today with 4 cc of 0.5% bupivacaine and 20 mg of Kenalog each. The patient tolerated both injections well. We have talked about possibly doing gel shots however her insurance was requiring a very large co-pay she declined to proceed with the gel shots previously. We will stick with cortisone for now. She was also given a refill of her Celebrex 200 mg daily I will see her back in 3 months if necessary she voiced understanding and agreed with the above plan she will call for any further problems difficulties or questions. Not available 12/07/2024 10:56:27 Plan of Treatment Reminders Order Date Submit Date Provider Last Modified By Organization Details Last Modified Time Details Appointments Any 5 2024 09:15A M ERVIN Monge Not available Not available Not available Establish ed Patient 15 2024 10:00A M Kyle Alonzo DPM Not available Not available Not available Lab None recorded. Referral None recorded. Procedures injection /aspirati on joint/bur sa (PROC) 2024 025 [email or web address] In-Office Order, Internal Use Only DO Not Attach Compendium DO Not Attach Compendium, Do Not Delete/merge, [id number] 12/07/2024 10:57:38 injection /aspirati on joint/bur sa (PROC) 2024 025 [email or web address] In-Office Order, Internal Use Only DO Not Attach Compendium DO Not Attach Compendium, Do Not Delete/merge, [id number] 09/07/2024 09:36:06 injection /aspirati on joint/bur sa (PROC) 2024 025 In-Office Order, Internal Use Only DO Not Attach Compendium DO Not Attach Compendium, Do Not Delete/merge, [id number] 06/08/2024 09:41:44 Surgeries None recorded. Imaging None recorded. Medication Orders bupivacai ne HCl 0.5 % (5 mg/mL) injection solution 2024 025 [email or web address] [id number], [address] [place], [address], 12/07/2024 11:08:38 Kenalog 10 mg/mL suspensio n for injection 2024 025 [email or web address] [id number], [address] [place], [address], 12/07/2024 11:08:38 Celebrex 200 mg capsule 2024 025 [email or web address] [id number], [address] [place], [address], 12/07/2024 11:08:38 bupivacai ne HCl 0.5 % (5 mg/mL) injection solution 2024 025 [email or web address] [id number], [address] [place], [address], 12/07/2024 10:29:45 Kenalog 10 mg/mL suspensio n for injection 2024 025 [email or web address] [id number], [address] [place], [address], 12/07/2024 10:30:54 bupivacai ne HCl 0.5 % (5 mg/mL) injection solution 2024 [address] [id number], [address], [place], [address], 12/07/2024 10:29:45 Kenalog 10 mg/mL suspensio n for injection 2024 025 [email or web address] [facility][id number], [address], [place], [address], 12/07/2024 10:30:54 Patient TargetsNo targets recorded. Patient InstructionsNo instructions recorded. Reason for Referral None Reported. Problems Name Problem SNOMED Code Status Onset Date Resolution Date Notes Provider Name and Address Organization Details Recorded Time Pain of right knee joint 1080708433510 00 Active 2022 Not Available [facility] 3 10:11:42 Bilateral osteoarthr itis of knees 7523682042193 07 Active 2022 Not Available [facility] 3 10:11:42 Morbid obesity 763380380 Active 2022 Juliano Arango MD [address], [address], [place], [address] , [place] [employer] [facility] 3 10:44:20 Diabetes mellitus 60196508 Active 2022 Kaia navarro, [place] [employer] [facility] 3 11:21:21 Bunion 838905553 Active 2022 Kyle Alonzo DPM [address], [address], [place], [address] , [place] [employer] [facility] 3 11:40:34 Diabetic peripheral neuropathy 497733003 Active 2022 Kyle Alonzo DPM [address], [address], [place], [address] , [place] [employer] [facility] 3 11:40:38 Dystrophia unguium 65104324 Active 2022 Kyle Alonzo DPM [address], [address], [place], [address] , [facility] [employer] [facility] 3 11:40:50 Hammer toe 688660570 Active 2022 Kyle Alonzo DPM [address], [address], [place], [address] , [facility] [employer] [facility] 3 11:41:04 Bunion 314562308 Active 2022 Kyle Alonzo DPM [address], [place], [address] , [facility] [employer] [facility] 3 11:42:19 Pain of bilateral knee joints 4715627717866 04 Active 2023 FLAVIO Catalan, [facility] [employer] [facility] 4 09:21:15 Notes:URINARY/BLADDER/KIDNEY PROBLEMS Problem Notes None recorded. Procedures Surgical History Date Name Laterality Status Provider Name and Address Organization Details Recorded Time 4 Nail Debridement completed Kyle Alonzo DPM [address], [address], [place], [address], [facility] [employer] [facility] 01/29/2024 10:23:38 4 Nail Debridement completed Kyle Alonzo DPM [address], [place], [address], [facility] [employer] [facility] 10/23/2023 13:46:36 3 Nail Debridement completed Kyle Alonzo DPM [address], [place], [address], [facility] [employer] [facility] 01/14/2023 11:40:28 3 Ortho - Cortisone Injection completed Juliano Arango MD [address], [address], [place], [address], [facility] [employer] [facility] 11/05/2022 10:22:20 section completed KRIS Pierce [facility] [employer] [facility] 11/05/2022 10:05:10 Imaging Results None recorded. Procedure Notes None recorded. Medical Equipment None Reported. Allergies No known drug allergies Medications Name Sig Start Date Stop Date Status Note LastModified by Organization Details LastModified Time celecoxib 200 mg capsule TAKE 1 CAPSULE BY MOUTH EVERY DAY active Not Available Not Available No t Available furosemide 40 mg tablet TAKE 1 TABLET BY MOUTH EVERY DAY NEEDED active Not Available Not Available No t Available pioglitazon e 15 mg tablet TAKE 1 TABLET BY MOUTH EVERY DAY IN THE MORNING FOR DIABETES active Not Available Not Available No t Available prednisone 10 mg tablet TAKE 1TAB 3XDAILY X3DAYS, 1TAB 2XDAILY X2DAYS, 1TAB DAILY X1DAY 10/22 completed Not Available Not Available Not Available atorvastati n 20 mg tablet TAKE 1 TABLET BY MOUTH EVERYDAY AT BEDTIME active Not Available Not Available No t Available cefaclor 500 mg capsule TAKE 1 CAPSULE BY MOUTH EVERY 8 HOURS AROUND THE CLOCK FOR 7 DAYS, FOR UTI. 12/07 completed Not Available Not Available Not Available cetirizine 10 mg tablet TAKE 1 TABLET BY MOUTH EVERY DAY 01/14 completed Not Available Not Available Not Available azithromyci n 250 mg tablet TAKE 2 TABLETS BY MOUTH TODAY, THEN TAKE 1 TABLET DAILY FOR 4 DAYS DIRECTED 12/07 completed Not Available Not Available Not Available benzonatate 200 mg capsule TAKE 1 CAPSULE BY MOUTHN 3 TIMES A DAY NEEDED FOR 5 DAYS, FOR COUGH. 12/07 completed Not Available Not Available Not Available donepezil 10 mg tablet TAKE 1 TABLET BY MOUTH EVERY DAY active Not Available Not Available No t Available bupivacaine HCl 0.5 % (5 mg/mL) injection solution Take 8 mL by injection route. 2024 active Not Available Not Available Not Avai lable penicillin V potassium 500 mg tablet TAKE 1 TABLET BY MOUTH EVERY 8 HOURS AFTER MEALS X10 DAYS 01/14 completed Not Available Not Available Not Available prednisone 10 mg tablets in a dose pack Take 1 tab by mouth, 3 times a day for 3 daysTake 1 tab by mouth 2 times a day for 2 daysTake 1 tab by mouth once a day for 1 day 10/22 completed Not Available Not Available Not Available Kenalog 10 mg/mL suspension for injection Take 4 mL by injection route. 2024 active [facility]: [phone]- [phone] Not Available Not Available Not Available benzonatate 100 mg capsule TAKE ONE CAPSULE BY MOUTH THREE TIMES DAILY NEEDED FOR COUGH 10/22 completed Not Available Not Available Not Available triamcinolo ne acetonide 40 mg/mL suspension for injection Take 40 mg by injection route. 12/07 completed Not Available Not Available Not Available nystatin 100,000 unit/gram topical cream APPLY TO AFFECTED AREA TWICE A DAY 10/22 completed Not Available Not Available Not Available ergocalcife rol (vitamin D2) 1,250 mcg (50,000 unit) capsule TAKE 1 CAPSULE BY MOUTH ONCE WEEKLY WITH A MEAL active Not Available Not Available No t Available ibuprofen 600 mg tablet 12/07 completed Not Available Not Available Not Available methylpredn isolone 4 mg tablets in a dose pack TAKE 6 TABLETS ON DAY 1 DIRECTED ON PACKAGE AND DECREASE BY 1 TAB EACH DAY FOR A TOTAL OF 6 DAYS 01/14 completed Not Available Not Available Not Available albuterol sulfate HFA 90 mcg/actuati on aerosol inhaler INHALE 2 PUFFS BY MOUTH 3 TIMES DAILY NEEDED active Not Available Not Available No t Available pioglitazon e 30 mg tablet TAKE 1 TABLET BY MOUTH EVERY DAY DIRECTED FOR 90 DAYS, FOR DIABETES 12/07 completed Not Available Not Available Not Available metformin ER 500 mg tablet,exte nded release 24 hr TAKE 4 TABLETS BY MOUTH ONCE DAILY AT DINNER active Not Available Not Available No t Available loratadine 10 mg tablet TAKE 1 TABLET BY MOUTH EVERY DAY IN THE MORNING 01/14 completed Not Available Not Available Not Available Microlet Lancet USE TO MONITOR BLOOD GLUCOSE ONCE DAILY 12/07 completed Not Available Not Available Not Available amoxicillin 875 mg-potassiu m clavulanate 125 mg tablet TAKE 1 TABLET BY MOUTH EVERY 12 HOURS 10/22 completed Not Available Not Available Not Available escitalopra m 20 mg tablet TAKE 1 TABLET BY MOUTH EVERY DAY WITH DINNER active Not Available Not Available No t Available ezetimibe 10 mg tablet TAKE 1 TABLET BY MOUTH EVERY DAY IN THE MORNING active Not Available Not Available No t Available Premarin 0.625 mg/gram vaginal cream INSERT 0.5 GRAMS VAGINALLY TWICE WEEKLY 12/07 completed Not Available Not Available Not Available Marcaine (PF) 0.5 % (5 mg/mL) injection solution Take 40 mg by injection route. 10/22 completed Not Available Not Available Not Available Alcohol Prep Pads APPLY 1 PAD EVERY DAY BY TOPICAL ROUTE NEEDED FOR 30 DAYS. 12/07 completed Not Available Not Available Not Available solifenacin 10 mg tablet TAKE 1 TABLET BY MOUTH EVERY DAY active Not Available Not Available No t Available Januvia 100 mg tablet TAKE 1 TABLET BY MOUTH EVERY DAY IN THE MORNING 12/07 completed Not Available Not Available Not Available cholecalcif ender (vitamin D3) 50 mcg (2,000 unit) capsule TAKE 1 CAPSULE BY MOUTH EVERY DAY WITH A MEAL 01/14 completed Not Available Not Available Not Available Synvisc-One 48 mg/6 mL intra-artic ular syringe Take 6 mL by intraarti cular route as directed, for bilateral knee osteoarth ritis. 12/07 completed Not Available Not Available Not Available Mucus Relief ER 600 mg tablet, extended release TAKE 1 TABLET BY MOUTH TWICE A DAY 01/14 completed Not Available Not Available Not Available Tradjenta 5 mg tablet TAKE 1 TABLET BY MOUTH EVERY DAY 01/14 completed Not Available Not Available Not Available ropivacaine (PF) 5 mg/mL (0.5 %) injection solution Take 40 mg by injection route. 12/07 completed [facility] [phone] Not Available Not Available Not Available Farxiga 10 mg tablet TAKE 1 TABLET BY MOUTH EVERY DAY IN THE MORNING active Not Available Not Available No t Available OneTouch Delica Plus Lancet 30 gauge 10/22 completed Not Available Not Available Not Available Ozempic 1 mg/dose (4 mg/3 mL) subcutaneou s pen injector 12/07 completed Not Available Not Available Not Available Ozempic 2 mg/dose (8 mg/3 mL) subcutaneou s pen injector INJECT 2MG UNDER THE SKIN ONCE WEEKLY 12/07 completed Not Available Not Available Not Available Ozempic 0.25 mg or 0.5 mg (2 mg/3 mL) subcutaneou s pen injector INJECT 0.5 MG SUBCUTANE OUSLY EVERY WEEK DIRECTED FOR 28 DAYS, FOR DIABETES active Not Available Not Available No t Available Contour Plus Test Strip TAKE 1 STRIP EVERY DAY BY MISCELL. ROUTE NEEDED FOR 100 DAYS, FOR DIABETES 12/07 completed Not Available Not Available Not Available Contour Plus Blue Meter USE DIRECTED 12/07 completed Not Available Not Available Not Available Vitals Date Recorded Body height Body mass index (BMI) Body weight Heart rate Respiratory rate Oxygen saturation Oxygen saturation in Arterial blood by Pulse oximetry Systolic And Diastolic Provider Name and Address Organization Details Last Updated DateTime 160.02 cm 39 kg/m2 41082.3 2 g 79 /min 14 /min 99 % 99 % 129/67 mm[Hg] Viri Rizzo [facility] [employer] [facility] 12:13:12 Date Recorded Body height Body mass index (BMI) Body weight Pain severity - 0-10 verbal numeric rating [Score] - Reported Provider Name and Address Organization Details Last Updated DateTime 06/08/2024 160.02 cm 36.3 kg/m2 88385.44 g 5 Yeimi Prajapati [facility] [employer] [facility] 06/08/2024 09:40:42 Date Recorded Body height Body mass index (BMI) Body weight Provider Name and Address Organization Details Last Updated DateTime 09/07/2024 160.02 cm 36.3 kg/m2 67977.44 g Marina Thomason [employer] [employer] [facility] [employer] [facility] 09/07/2024 09:33:56 Date Recorded Body height Body mass index (BMI) Body weight Pain severity - 0-10 verbal numeric rating [Score] - Reported Provider Name and Address Organization Details Last Updated DateTime 12/07/2024 160.02 cm 38.1 kg/m2 34133.36 g 4 Yeimi Prajapati [facility] [employer] [facility] 12/07/2024 10:29:00 Date Recorded Body height Body mass index (BMI) Body weight Heart rate Oxygen saturation Oxygen saturation in Arterial blood by Pulse oximetry Body temperature Systolic And Diastolic Provider Name and Address Organization Details Last Updated DateTime 160.02 cm 38.1 kg/m2 92691.3 6 g 72 /min 92 % 92 % 98.2 [degF] 146/73 mm[Hg] Rubén Matos [facility] [employer] [facility] 11:58:03 Social History Question Answer Notes LastModified by Organizat ion Details LastModified Time Tobacco Smoking Status Former Smoker CECILIO [facility] 01/14/2023 11:22:19 When Did You Quit Smoking? 11-15yearssi [email or web address] Information not available 01/14/2023 What Was The Date Of Your Most Recent Tobacco Screening? 12/14/2024 [email or web address] Information not available 12/14/2024 How Many Years Have You Smoked Tobacco? 30 Information not available 01/14/2023 Sex: Unknown Functional Status Question Answer Note LastModified by Organization D etails LastModified Time What is your level of alcohol consumption? None Information not available 11/05/2022 Mental Status None recorded. Family History Relationship Description Onset Age of this Age Resolved Age Notes LastModified by Organization Details LastModified Time Mother Family history of malignant neoplasm [email or web address] Not available 2022 10:02:21 Father Family history of malignant neoplasm [email or web address] Not available 2022 10:02:21 Father Diabetes mellitus Not available 2022 10:02:30 Unspecified Relation Arthritis [email or web address] Not available 023 11:21:58 Medical History Condition Response ARTHRITIS Y DIABETES, TYPE Y OBESITY Y URINARY/BLADDER/KIDNEY PROBLEMS Y Gynecological HistoryNo gynecological history recorded. Obstetrics History GPAL:G 0 P 0 0 0 0 Past Encounters Encounter ID Performer Location Encounter Start Date Encounter Closed Date Diagnosis/Indication Diagnosis SNOMED-CT Code Diagnosis ICD10 Code Diagnosis IMO Codes Diagnosis Note [id number] Juliano Arango MD [facility] [address] 11/05/2022 09:41:56 11/05/2022 11:34:27 Bilateral osteoarthritis of knees 5742904865 57465 M17.0 [id number] Juliano Arango MD [facility] [address] 12/03/2022 10:20:54 12/03/2022 10:50:16 Bilateral osteoarthritis of knees 7011197447 22863 M17.0 Morbid obesity 065213822 E66.01 [id number] Kyle Alonzo DPM [facility] [place] [address] [place] [address] 01/14/2023 11:11:32 01/20/2023 09:49:59 Bunion 821403545 M21.611 M21.612 treatment options reviewedOb tain x-raysreco mmend wide shoe gearcheck foot daily for wounds infectionr ecommend silicone offloading toe spacer Diabetic p eripheral neuropathy 874457116 E11.40 Patient educated on neuropathy , diabetes, diabetic diet, and daily foot exams. Patient is to check feet daily for new wounds, blisters, redness to prevent infection and ulceration s to the feet. Patient will return to clinic in 3 months for diabetic foot workup.Rec ommend glucose control at A1c of 6, continue PCP recommenda tion Hammer toe 821334435 M20 .41 M20.42 As above Dystrophia unguium 14518 009 L60.3 Nails 1 through 10 were debrided with sharp mechanical debridemen t without incident. Nails were debrided and greater than 50% length and thickness where needed. [id number] Anjel Moody MD [facility] [address] 06/10/2023 09:17:07 06/10/2023 09:38:41 Bilateral osteoarthritis of knees 7392704166 90445 M17.0 Pain of bi lateral knee joints 6018347948 36322 M25.561 M25.098 [id number] Anjel Moody MD [facility] [address] 09/16/2023 09:01:12 09/16/2023 10:21:17 Bilateral osteoarthritis of knees 7716006754 58736 M17.0 Pain of bi lateral knee joints 6791364541 57856 M25.561 M25.235 [id number] Kyle Alonzo DPM [facility] [address] [address] 10/23/2023 11:53:21 10/24/2023 08:07:08 Diabetes mellitus 34498631 E11.9 Continue diabetic control per PCP recommenda tions Diabetic p eripheral neuropathy 190342685 E11.40 recommend supportive shoe gearcheck foot daily for wounds infectionF ollow-up in 3 months Bunion 324796781 M21.61 1 M21.612 treatment options reviewedOb tain x-raysreco mmend wide shoe gearcheck foot daily for wounds infectionr ecommend silicone offloading toe spacer Dystrophia unguium 13069 009 L60.3 Nails 1 through 10 were debrided with sharp mechanical debridemen t without incident. Nails were debrided and greater than 50% length and thickness where needed. Hammer toe 721056235 M20 .41 M20.42 As above [id number] Anjel Moody MD [facility] [address] 12/16/2023 08:52:06 12/16/2023 09:25:24 Bilateral osteoarthritis of knees 8529245778 14481 M17.0 Pain of bi lateral knee joints 0698076663 72850 M25.561 M25.790 [id number] Kyle Alonzo DPM [facility] [address] [address] 01/29/2024 09:45:27 03/19/2024 11:42:04 Diabetes mellitus 25755464 E11.9 Continue diabetic control per PCP recommenda tions Diabetic p eripheral neuropathy 032452435 E11.40 recommend supportive shoe gearcheck foot daily for wounds infectionF ollow-up in 3 months Dystrophia unguium 54543 009 L60.3 Nails 1 through 10 were debrided with sharp mechanical debridemen t without incident. Nails were debrided and greater than 50% length and thickness where needed. [id number] Anjel Moody MD [facility] [address] 03/09/2024 09:38:19 03/09/2024 10:07:52 Bilateral osteoarthritis of knees 3725067820 08096 M17.0 Pain of bi lateral knee joints 0499577562 41933 M25.561 M25.935 [id number] Kyle Alonzo DPM [facility] [address] [place] [address] 05/25/2024 12:00:24 05/25/2024 15:33:41 Diabetes mellitus 94400118 E11.9 Continue diabetic control per PCP recommenda tions Diabetic p eripheral neuropathy 352326897 E11.40 recommend supportive shoe gearcheck foot daily for wounds infectionF ollow-up in 3 months Dystrophia unguium 03593 009 L60.3 Nails 1 through 10 were debrided with sharp mechanical debridemen t without incident. Nails were debrided and greater than 50% length and thickness where needed. [id number] Anjel Moody MD [address] [address] 06/08/2024 09:37:15 06/08/2024 09:52:20 Bilateral osteoarthritis of knees 0974015785 42486 M17.0 Pain of bi lateral knee joints 5894228401 74047 M25.561 M25.747 [id number] Anjel Moody MD [address] [address] 09/07/2024 09:29:20 09/07/2024 09:45:47 Bilateral osteoarthritis of knees 7778237568 76821 M17.0 Pain of bi lateral knee joints 3813151939 71884 M25.561 M25.058 [id number] Anjel Moody MD [address] [address] 12/07/2024 10:12:36 12/07/2024 11:11:24 Bilateral osteoarthritis of knees 1509202455 14487 M17.0 Pain of ri ght knee joint 7289286259 04595 M25.561 Health Concerns Section Related Observation LastModified by Organization Detai ls LastModified Time None Recorded Concern Status LastModified by Organization Details LastModified Time None Recorded Advance Directives Directive None Recorded Payers Insurance Date Sequence Insurance Name Policy Number Policy Vieyra Covered Member ID Vieyra Member ID Guarantor Name 12/07/2024 2 [place] [employer] [place] [employer] Harriet Giraldo [id number] Harriet Giraldo 12/11/2024 1 [facility] (MEDICARE REPLACEMENT/AD VANTAGE - PPO) [id number] Harriet Cervantes Giraldo [id number] Harriet Giraldo 12/07/2024 2 [employer] [facility] [place] [facility] ON OR AFTER 02/22/2020 (MEDICAID REPLACEMENT - HMO) Harriet Giraldo [id number] Harriet Giraldo Notes Date Note Type Note Provider Name and Address Organization Details Recorded Time 05/25/2024 text/html . Patient 69-year-old female diabetic with neuropathy she returns for diabetic foot care she denies any open wounds or injury. Patient denies any other complaints and requests her nails Be cut. Kyle Alonzo DPM [address] [facility], [place], [address], [place] 05/25/2024 13:23:10 06/08/2024 text/html the patient returns complaining of bilateral knee pain right worse than left. She has known severe primary osteoarthritis right knee more moderate in the left knee. She has significant changes in the medial and patellofemoral compartments right worse than left the right side shows some lateral patellar tilt and subluxation not so much on the left. She has aching pain that is about a 5 on a scale of 1-10 it is been 3 months since her last cortisone injection she would like to repeat that in both knees denies any new trauma or injury no erythema effusion or signs of infection. Shots do give her good relief for nearly 3 months at a time. ERVIN Monge [address] [facility], [address], [place], [address], [place] 06/08/2024 09:55:09 09/07/2024 text/html the patient returns with bilateral knee pain she comes in every 3 months for cortisone. She would like to do that again today she is waiting on approval for gel shots once we get these set up we can see her back in a couple of months and try those as well. She states cortisone gives her pretty good relief for a couple of months lately her pain has started to return. She states the pain is about a 5 on a scale 1-10 today. Some days it is a little worse some days little better. Despite conservative measures recently on her own her symptoms continue. She does take Celebrex daily. Denies any new trauma or injury to either knee. X-ray findings were reviewed with her in detail from previous x-rays. She has significant changes in the medial and patellofemoral compartments both knees right a little bit worse than left. Right side show some lateral patellar tilt and subluxation not as much on the left. ERVIN Monge [address], [facility] [address], [place], [address], [place] [employer] [employer] [facility] 09/07/2024 09:45:59 12/07/2024 text/html The patient returns with bilateral knee pain right worse than left. She has severe primary osteoarthritis in the right knee a little less severe in the left knee both medial compartments are significantly worn with [id number] changes in the medial compartment of the right knee and about a mm joint space remaining in the left medial compartment. The patellofemoral articulations also show significant wear and degenerative change. She states shots of cortisone 3 months ago did give her good relief for awhile. She is trying to avoid total knee arthroplasty. She does take Celebrex daily she states she needs a refill we will get her that today as well. She would like both knees injected. New past medical history sheet was reviewed and signed on the intake sheet of today's date drug allergies current medications family social history previous surgical history 10 point review of systems was reviewed and discussed in detail today with the patient. ERVIN Monge [address], [facility] [address], [place], [address], [place] [facility] [employer] 12/07/2024 10:58:12 12/14/2024 text/html . Patient is a 69-year-old female who returns the office for diabetic foot care. Patient states overall she is doing well she denies any open wounds she has chronic bunions but denies any pain to these areas she denies any open wounds. Patient denies any other complaints. Not Available Not Available Not Available OBGyn Episode No OBEpisode recorded.
--- OUTSIDE RECORDS SUMMARY | 2024-12-23 20:21 | XMS_ITS | Clinical Summary ---
Author Organization [facility] Address [address] [place] [address] Care Team Providers Care Guest Relations Representative Name Role Phone Staci Calix MD Primary Care Provider [phone] Allergies Active Allergy Reactions Criticality Noted Date Comments Hydrocodone Nausea only,Vomiting Reaction: Nausea, Vomiting, Medications metFORMIN (GLUCOPHAGE) 500 mg tablet Take 1 tablet (500 mg total) by mouth 2 (two) times a day with meals. 60 tablet 8 Active benzonatate (TESSALON) 100 mg capsuleIndicatio ns:Cough Take 1 capsule (100 mg total) by mouth 3 (three) times a day as needed for cough. 20 capsule 8 Active Additional Information Patient not taking.Reported on 01/07/2023 albuterol HFA (PROVENTIL HFA,VENTOLIN HFA,PROAIR HFA) 90 mcg/actuation inhaler Inhale 2 puffs every 6 (six) hours as needed for wheezing Active atorvastatin (LIPITOR) 20 mg tablet Take 1 tablet (20 mg total) by mouth daily Active celecoxib (CeleBREX) 200 mg capsule Take 1 capsule (200 mg total) by mouth with evening meal Active donepeziL (ARICEPT) 10 mg tablet Take 1 tablet (10 mg total) by mouth nightly Active vitamin A-ergocalciferol , D2, 1,250-135 unit capsule Take by mouth Act fabi ezetimibe (ZETIA) 10 mg tablet Take 1 tablet (10 mg total) by mouth daily Active dapagliflozin propanediol (FARXIGA) 10 mg tablet 1 tablet (10 mg total) Active SITagliptin phosphate (JANUVIA) 100 mg tabletIndication s:type 2 diabetes mellitus Take 1 tablet (100 mg total) by mouth daily Active loratadine (CLARITIN) 10 mg tablet Take 1 tablet (10 mg total) by mouth daily Active nystatin cream Apply topically 2 (two) times a day Active omega-3 fatty acids-fish oil 300-1,000 mg capsule Take 2 capsules (2 g total) by mouth daily Active blood glucose diagnostic (glucose blood) strip by other route Activ e pioglitazone (ACTOS) 15 mg tabletIndication s:type 2 diabetes mellitus Take 1 tablet (15 mg total) by mouth every morning Active solifenacin (VESIcare) 10 mg tablet Take 1 tablet (10 mg total) by mouth daily Active ergocalciferol (VITAMIN D) 50,000 unit capsule TAKE 1 CAPSULE BY MOUTH ONCE WEEKLY WITH A MEAL 4 Active escitalopram (LEXAPRO) 20 mg tablet Take 1 tablet (20 mg total) by mouth daily with dinner 4 Active furosemide (LASIX) 40 mg tablet Take 1 tablet (40 mg total) by mouth daily as needed 4 Active Ozempic 0.25 mg or 0.5 mg (2 mg/3 mL) pen injector injection INJECT 0.25MG UNDER THE SKIN ONCE WEEKLY AFTER MEALS 4 Active Active Problems Problem Noted Date Diagnosed Date Left ventricular systolic dy sfunction (LVSD) without heart failure 06/24/2023 Diabetes mellitus 08/07/2013 Overview (06/28/2016): Diabetes Surgical History Surgery Date Site/Laterality Comments SECTION x 3 Medical History Medical History Date Comments Osteoarthritis Osteoarthritis Family History Medical History Relation Name Comments Other Other 1 Family history of Cancer -lung,; Diabetes type II Other 2 Family hist ory of Diabetes -Type II; Other Other 3 Family history of thyroid; Other Other 4 No family histo ry of Alcoholism; Other Other 5 No family histo ry of Blood disease; Other Other 6 No family histo ry of Depression; Other Other 7 No family histo ry of Hypertension; Other Other 8 No family histo ry of Osteoarthritis; Other Other 9 No family histo ry of Osteoporosis; Relation Name Status Comments Other 1 Other 2 Other 3 Other 4 Other 5 Other 6 Other 7 Other 8 Other 9 Social History Tobacco Use Types Packs/Day Years Used Date Smoking Tobacco: Former Cigarettes Q uit: 2008 Smokeless Tobacco: Never Tobacco Cessation:Counseling Given: Not Answered Alcohol Use Standard Drinks/Week Comments No 0 (1 standard drink = 0.6 oz pur e alcohol) Comments Unknown Sex and Gender Information Value Date Recorded Sex Assigned at Not on file Legal Sex Female 12:48 AM [employer] Gender Identity Not on file Sexual Orientation Not on file Obstetrics History Last Filed Vital Signs Vital Sign Reading Time Taken Comments Blood Pressure 130/62 10/16/2023 3:04 PM CDT Pulse 83 10/16/2023 3:04 PM CDT Temperature 36.1 C (97 F) 11/03/2017 12:43 PM CDT Respiratory Rate 17 10/16/2023 3:04 PM CDT Oxygen Saturation 96% 09/19/2023 9:06 AM CDT Inhaled Oxygen Concentration - - Weight 102.5 kg (226 lb) 10/16/2023 3:04 PM CDT Height 160 cm (5' 3) 10/16/2023 3:04 PM CDT Body Mass Index 40.03 10/16/2023 3:04 PM CDT Plan of Treatment Health Maintenance Due Date Last Done Comments Albumin Creatinine Ratio, Urine 1957 Breast Cancer Screening-Mammogram 1957 Colon Cancer Screening-Colonoscopy 1957 Depression Screening 1957 Hemoglobin A1C 1957 Hepatitis C Screening 1957 Osteoporosis Screening-Bone Density Scan 1957 eGFR 1957 Dilated Eye Exam 1957 Foot Exam 1957 DTaP/Tdap/Td Vaccine (1 - Tdap) 01/18/1968 Zoster Vaccine (1 of 2) 2007 Well Visit 65+ 2022 Pneumococcal vaccine 65+ (2 of 2 - PCV) 02/01/2023 02/01/2022 Lipid Panel 01/08/2024 01/07/2023 Fall Risk Assessment 06/10/2024 06/11/2023 Covid-19 Vaccine (3 - 2024-2 6 season) 2024 12/02/2020, 11/11/2020 Influenza Vaccine (#1) 2024 2, 02/01/2021, 01/07/2020, Additional history exists Hepatitis B Screening Completed 01/07/2013, 013 Procedures Procedure Name Priority Date/Time Associated Diagnosis Comments POCT LIPID PANEL Routine 01/07/2023 11:1 5 AM CDT Lipid screening from Last 3 Months or Most Recently Relevant to Health Maintenance Results * POCT lipid panel (01/07/2023 11:15 AM CDT) Cholesterol, POC <100 mg/dL HDL, POC 46 mg/dL Triglycerides, POC 170 mg/dL LDL Cholesterol POC 28 mg/dL Chol/HDL Ratio, POC N/A Non-HDL Cholesterol, POC N/A mg/dL Cholesterol Total, POC <100 mg/dL Capillary blood 01/07/2023 1 1:15 AM CDT us Shant Singh MD POINT OF CARE TEST ORDER TABATHA Final Result from Last 3 Months or Most Recently Relevant to Health Maintenance Insurance MEDICARE ADVANTAGE [facility] MEDICARE Address: [facility] [address] [place] [address] [facility] MEDICARE ADVANTAGE [facility] MEDICARE Address: [address] [address] Care Teams Guest Relations Representative Relationship Specialty Start Date End Date Staci Calix MD [address] [place] [address] PCP - General Internal Medicine 01/07/23
--- OUTSIDE RECORDS SUMMARY | 2024-12-23 21:37 | XMS_ITS | Clinical Summary ---
Author Organization [facility] Health Address [id number] [place] [address] Care Team Providers Care Distribution Operations Supervisor Name Role Phone Unavailable Primary Care Provider [...] Most Recently Relevant to Health Maintenance Insurance [facility] PPO
--- OUTSIDE RECORDS SUMMARY | 2024-12-23 21:37 | XMS_ITS | Encounter Summary ---
Author Organization [facility] Health Address [address] [place] [address] Care Team Providers Care Av Specialist Name Role Phone Unavailable Primary Care Provider Unavailabl e Prior Encounters Date Type Department Care Team Description 07/15/2023 Refill [facility] [address] [place] [phone] Anthony Huber DDS 01/10/2023 Telephone [facility] [address] [place] [phone] Anthony Huber DDS 01/09/2023 1:00 PM CDT Office Visit [facility] [address] [place] [phone] Anthony Hubre DDS Last Filed Vital Signs Vital Sign [...]
--- OUTSIDE RECORDS SUMMARY | 2024-12-23 21:37 | XMS_ITS | Clinical Summary ---
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 [address] [place] [address] [facility] MEDICARE AD[facility]ANTAGE [facility] Address: [address] [address] Care Teams Fuse Maker Relationship Specialty Start Date End Date Staci Calix MD [address] [place] [address] PCP - General Internal Medicine 01/07/23
--- OUTSIDE RECORDS SUMMARY | 2024-12-23 21:37 | XMS_ITS | Encounter Summary ---
Author Organization [facility] Health Address [address] [place] [address] Care Team Providers Care Forming Machine Operator Name Role Phone Unavailable Primary Care Provider Unavailabl e Reason for Visit * Reason Comments Med Refill Encounter Details Date Type Department Care Team (Late st Contact Info) Description 07/15/2023 Refill [facility] [address] [place] [address] Anthony Huber, DDS [address] [place] [address] Social History Tobacco Use Types [...]
--- NOTE | 2024-12-23 21:40 | ED.URI ---
HPI - URI/Sore Throat General Chief Complaint: Upper Respiratory Infection Stated Complaint: congestion, cough and sob Time Seen by Provider: 12/23/24 21:22 Source: patient Mode of arrival: ambulatory Limitations: no limitations History of Present Illness HPI Narrative: Jacinda presents with report of a head cold: - concern for cough, congestion, and shortenss of breath. Lives with Aye, daughter. Has been trying Dayquil, Nyquil, and Vapo rub but avoiding cough syrup as she didn't want to suppress the cough. She felt like she was drowning earlier. No history CHF. Had secretions couming out of nose and mouth. No history heart faiulre. No bloody sputum. Does not smoke. No underlying respiratory conditions. not on anticoagulation. Does not typically wear O2. No chest pain. No sick contacts. No fevers/chills. Has had a productive cough. No chest pain. Has had rhinorrhea. Related Data Home Medications ?Medication ?Instructions ?Recorded ?Confirmed ?Last Taken ?Type metformin 500 mg tablet,extended 2,000 mg PO QPM 07/09/20 07/11/23 Unknown History release 24 hr donepezil 10 mg tablet (Aricept) 10 mg PO HS 07/10/20 07/11/23 Unknown History ergocalciferol (vitamin D2) 1,250 1,250 mcg PO WEEKLY 07/10/20 07/11/23 Unknown History mcg (50,000 unit) capsule escitalopram oxalate 20 mg tablet 20 mg PO 1700 07/10/20 07/11/23 Unknown History (Lexapro) ezetimibe 10 mg tablet (Zetia) 10 mg PO DAILY 07/10/20 07/11/23 Unknown History solifenacin 10 mg tablet (Vesicare) 10 mg PO DAILY 07/10/20 07/11/23 Unknown History atorvastatin 20 mg tablet 20 mg PO DAILY 07/11/23 07/11/23 Unknown History dapagliflozin propanediol 10 mg 10 mg PO DAILY 07/11/23 07/11/23 Unknown History tablet (Farxiga) furosemide 40 mg tablet 40 mg PO DAILY 07/11/23 07/11/23 Unknown History [id number]-nwa-epa-fish 1 tablet PO DAILY 07/11/23 07/11/23 Unknown History oil 200 mcg-1,000 unit-25 mg tab,chew pioglitazone 15 mg tablet 15 mg PO DAILY 07/11/23 07/11/23 Unknown History semaglutide 0.25 mg or 0.5 mg (2 0.25 mg subcut WEEKLY 07/11/23 07/11/23 Unknown History mg/3 mL) subcutaneous pen injector (Ozempic) Allergies Allergy/AdvReac Type Severity Reaction Status Date / Time No Known Allergies Allergy Verified 11/29/24 09:43 PMFSH Past Medical History Medical History Urge incontinence Obesity Diabetes mellitus Surgical History Surgical History History of tubal ligation History of 3 sections History of tonsillectomy Family History Family History Father Diabetes mellitus Lung cancer Mother Lung cancer Sibling Diabetes mellitus Lung cancer Social History Social History Social History: She and her are originally from [place]. 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 She has 3 children total. She is a former smoker and smoked a pack per day for 34 years. She quit smoking in 2008. She does not drink alcohol use illicit substances. Smoking packs per day: 1 Smoking cigarettes per day: 20.0 Years smoked: 34 Smoking pack-years: 34.00 Smoking status: Former smoker Tobacco type: cigarettes Second hand tobacco smoke exposure: No Alcohol intake: never Substance use: former Substance use type: does not use Current Housing: Decline to Answer Concerned About Future Housing: Decline to Answer Difficulty Paying Gas/Electric Bills: Decline to Answer Difficulty Paying for Meds: Decline to Answer Currently Unemployed: Decline to Answer Education: Decline to Answer Difficulty w/ Childcare or Family Care: Decline to Answer Living arrangements: with family Gender identity (if verbalized by the patient): Female Spiritual care concerns: No Exam Narrative: GENERAL: Well-appearing, well-nourished, and in no acute distress. HEAD: Normocephalic, atraumatic. EYES: Non injected, non icteric ENT: Nares clear, no rhinorrhea or epistaxis. Gross auditory acuity intact. NECK: Supple. No meningismus. CHEST: Speaking in full sentences. No respiratory distress. Wheezes on auscultation HEART: Regular rate and rhythm. . ABDOMEN: Obese but Soft, nondistended. No rigidity or guarding. Not peritoneal EXTREMITIES: Normal range of motion. Trace bilateral lower extremity edema. SKIN: Warm, dry, no rash. NEURO: No focal deficits. Alert and oriented. Answering questions. Following commands. Normal speech without aphasia or dysarthria. PSYCH: Normal mood and affect. Course Vital Signs Vital signs: Vital Signs Temperature 97.3 F L 12/23/24 20:20 Pulse Rate 93 12/23/24 20:20 Respiratory Rate 22 H 12/23/24 20:20 Blood Pressure 148/57 H 12/23/24 20:20 Pulse Oximetry 93 12/23/24 20:20 Temperature 98.4 F 12/24/24 02:01 Pulse Rate 73 12/24/24 02:01 Respiratory Rate 16 12/24/24 02:01 Blood Pressure 134/74 12/24/24 02:01 Pulse Oximetry 93 12/24/24 02:01 Oxygen Delivery Room Air 12/24/24 01:14 Oxygen Flow Rate 0.5 12/24/24 00:20 Fraction of Inspired Oxygen 21 12/24/24 01:14 MDM - URI/Sore Throat MDM Narrative Medical decision making narrative: Patient presents with resport of a head cold with symptoms of cough, congestion and shortness of breath. in the emergency department she is afebrile with vital signs that show mild tachypnea and acceptable BP (mildly elevated SBP and low DBP), MAP >80mmHg. She was also initially hypoxic at 93% on room air for which nasal cannula was applied. Mild leukocytosis. Viral swab negative. D dimer within normal limits. Hyperglycemia is without anion gap or acidosis. Pseudo hyponatremia as it corrects to 137/138 given the glucose. BNP mildly elevated but not to a degree to suggest acute heart failure based on the reference range of the assay for patient's age. Albuterol nebulizer treatment ordered. O2 downtitrated initially to 0.5 but still borderline hypoxic on that so 1LPM while await CT. Patient is reassessed at midnight. She reports feeling better. On auscultation, she does have some wheezes that are appreciated posteriorly at this time. Second albuterol neb treatment ordered. RT notes that he took her off O2 and she was maintaining saturations >93%. Requests incentive spirometer given that her oxygenation seems to improve when she takes deep breaths and has a large cough. Patient occasionally with hypoxia/borderline hypoxia. 3rd albuterol Tx ordered. Patient offered admission but she declines. During this conversation she is not on O2 and maintaining SpO2 94-96% with good wave form. She promises that she will return to the emergency department any new worsening recurrent symptoms. DIscharged with Rx for albuterol inhaler with spacer as well as Tessalon perles. Differential Diagnosis Differential diagnosis: Likely upper respiratory infection, viral infection, bronchitis, influenza and other (acute heart failure; pneumonia) Lab Data 12/23/24 22:05 12/23/24 22:05 Labs: Lab Results 12/23/24 12/23/24 12/23/24 Range/Units 21:37 22:05 23:05 WBC 11.7 H (4.5-10.0) K/mm3 RBC 4.50 (4.2-5.4) M/mm3 Hgb 13.3 (12.0-15.0) g/dL Hct 41.5 (37.0-47.0) % MCV 92.2 (80-100) fl MCH 29.6 (26-34) pg MCHC 32.0 (32-36) g/dl RDW 13.0 (11.5-14.5) % Plt Count 254 (150-375) k/mm3 MPV 10.3 (7.4-10.4) fl Immature Gran % (Auto) 0.5 (0-0.5) % Neut % (Auto) 62.9 (45.5-73.1) % Lymph % (Auto) 25.8 (18.3-44.2) % [place] % (Auto) 7.0 (2.6-8.5) % Eos % (Auto) 3.3 (0-4.4) % Baso % (Auto) 0.5 (0.2-1.2) % Lymph # (Auto) 3.01 (0.9-3.2) K/mm3 [place] # (Auto) 0.8 H (0.1-0.6) K/mm3 Eos # (Auto) 0.4 H (0-0.3) K/mm3 Baso # (Auto) 0.1 (0.0-0.1) K/mm3 Abs Immat Gran (auto) 0.06 H (0.00-0.031) K/mm3 Absolute Neuts (auto) 7.3 H (1.3-6.7) K/mm3 Absolute Nucleated RBC 0.000 (0.0-0.012) K/mm3 Nucleated RBC % 0.0 (0.0-0.2) % D-Dimer < 0.27 (<0.48) ug/mL Sodium 134 L (137-145) mmol/L Potassium 4.3 (3.4-5.0) mmol/L Chloride 99 (98-107) mmol/L Carbon Dioxide 29 (22-30) mmol/L Anion Gap 6 (4-12) mmol/L BUN 24 H (7-17) mg/dL Creatinine 0.51 L (0.7-1.0) mg/dL Estim Creat Clear Calc 103 ml/min Estimated GFR > 60 (59 - ) Glucose 269 H (65-110) mg/dL Lactic Acid 0.7 (0.7-2.0) mmol/L Calcium 9.3 (8.4-10.2) mg/dL Total Bilirubin 0.4 (0.2-1.3) mg/dL AST 24 (14-36) U/L ALT 20 (6-35) U/L Alkaline Phosphatase 87 (38-126) U/L NT-Pro-B Natriuret Pep 122 H (19.9-100) pg/mL Total Protein 7.2 (6.3-8.2) g/dL Albumin 4.1 (3.5-5.1) g/dL Influenza A (RT-PCR) Negative (Negative) Influenza B (RT-PCR) Negative (Negative) RSV (RT-PCR) Negative (Negative) SARS-CoV-2 RNA (RT-PCR) Negative (Negative) Imaging Data Radiologist's impression: CT Chest with contrast STat Rad: No acute finding. (Compared to prior CTA chest 07/09/2020) Discharge Plan Discharge Clinical Impression: Leukocytosis, Hyperglycemia due to diabetes mellitus, Pseudohyponatremia, Bronchitis with wheezing Patient Disposition: Home Condition: Stable Instructions: Antibiotic Form, How to Use an Incentive Spirometer (ED), Acute Bronchitis (ED), Managing Diabetes During Sick Days (ED), Diabetic Hyperglycemia (ED), Wheezing (ED) Additional Instructions: No pneumonia on chest xray or CT scan but your bronchitis has wheezes. No need for antibiotics given this is Likely viral though you tested negative for covid, influenza A, influenza b, AND rsv. Use the albuterol inhaler given you have wheezes. The Tessalon perles may help with the cough. Rest and maintain your hydration. follow-up with primary care physician. Return to the emergency department any new or worsening symptoms. You can also use the incentive spirometer to encourage you to remember to take deep breaths. Patient Language: Uzbek Prescriptions: New benzonatate 100 mg capsule 100 mg PO BID PRN (Reason: cough) Qty: 20 0RF albuterol sulfate [Ventolin HFA] 90 mcg/actuation HFA aerosol inhaler 1 inh inhalation QID PRN (Reason: shortness of breath or wheezing) Qty: 6.7 0RF Rx Instructions: dispense with spacer please (DME) Space Chamber Spacer See Rx Instructions .Route Qty: 1 0RF Rx Instructions: As directed No Action furosemide 40 mg tablet 40 mg PO DAILY pioglitazone 15 mg tablet 15 mg PO DAILY atorvastatin 20 mg tablet 20 mg PO DAILY dapagliflozin propanediol [Farxiga] 10 mg tablet 10 mg PO DAILY Ozempic 0.25 mg or 0.5 mg (2 mg/3 mL) pen injector 0.25 mg SUBCUT WEEKLY [id number]-orl-epa-fish 200 mcg-1,000 unit-25 mg Tablet,Chewable 1 tablet PO DAILY metformin 500 mg Tablet Extended Release 24 Hr 2,000 mg PO QPM Rx Instructions: Given with dinner donepezil [Aricept] 10 mg Tablet 10 mg PO HS ergocalciferol (vitamin D2) 1,250 mcg (50,000 unit) Capsule 1,250 mcg PO WEEKLY Rx Instructions: takes on Friday escitalopram oxalate [Lexapro] 20 mg Tablet 20 mg PO 1700 ezetimibe [Zetia] 10 mg Tablet 10 mg PO DAILY solifenacin [Vesicare] 10 mg Tablet 10 mg PO DAILY albuterol sulfate [Proventil HFA] 90 mcg/actuation Hfa Aerosol Inhaler 2 puff inhalation Q6HRT PRN (Reason: Shortness Of Breath) Qty: 1 0RF benzonatate 100 mg capsule 100 mg PO TID PRN (Reason: cough) Qty: 20 0RF Follow-up/Referrals: BharatiElijah M.D. [Primary Care Provider] Stand Alone Forms: Work/School Release IP Time of Disposition: 00:52
[2024-12-23 22:15] LABS: Hematocrit 41.5 % (37.0-47.0); Hemoglobin 13.3 g/dL (12.0-15.0); Immature Granulocyte Percent A 0.5 % (0-0.5); Lymphocytes Absolute Auto 3.01 K/mm3 (0.9-3.2); Mean Corpuscular HGB Conc 32.0 g/dl (32-36); Mean Corpuscular Hemoglobin 29.6 pg (26-34); Mean Corpuscular Volume 92.2 fl (80-100); Nucleated Red Blood Cells Absolute Auto 0.000 K/mm3 (0.0-0.012); Nucleated Red Blood Cells Perc 0.0 % (0.0-0.2); Platelet Count Result 254 k/mm3 (150-375); Red Blood Count 4.50 M/mm3 (4.2-5.4); White Blood Count 11.7 K/mm3 (4.5-10.0)
[2024-12-23 22:21] LABS: Influenza A QL RT-PCR Negative (Negative); Influenza B QL RT-PCR Negative (Negative); RSV RNA, RT-PCR Negative (Negative); SARS-CoV-2 RNA PCR Negative (Negative)
[2024-12-23 22:28] LABS: Alanine Aminotransferase 20 U/L (6-35); Albumin Level 4.1 g/dL (3.5-5.1); Alkaline Phosphatase 87 U/L (38-126); Anion Gap 6 mmol/L (4-12); Aspartate Amino Transferase 24 U/L (14-36); Bilirubin,Total 0.4 mg/dL (0.2-1.3); Blood Urea Nitrogen 24 mg/dL (7-17); Calcium 9.3 mg/dL (8.4-10.2); Carbon Dioxide 29 mmol/L (22-30); Chloride 99 mmol/L (98-107); Estimated CRCL calculation 103 ml/min; Estimated Glomerular Filt Rate > 60; Glucose 269 mg/dL (65-110); Potassium 4.3 mmol/L (3.4-5.0); Sodium 134 mmol/L (137-145); Total Protein 7.2 g/dL (6.3-8.2)
[2024-12-23 22:36] LABS: NT Pro B Type Natriuretic Pept 122 pg/mL (19.9-100)
[2024-12-23] MEDS: ALBUTEROL SULFATE NEB 2.5 MG/3 ML INH INHALATION (22:51)
[2024-12-23] MEDS: BENZONATATE 100 MG CAPSULE PO (23:43)
[2024-12-24] VITALS (7 sets, daily range): BP systolic 134; BP diastolic 74; PULSE 73–84; RESP 16–18; TEMP 36.9; O2SAT 92–96
[2024-12-24] MEDS: ALBUTEROL SULFATE NEB 2.5 MG/3 ML INH INHALATION ×2 (00:25→01:10)
== END 2024-12-24 02:03 | disposition home or self-care (01) ==
PROVIDERS: Emergency Provider Student in an Organized Health Care Education/Training Program; PCP Internal Medicine Infectious Disease
DX: J40 Bronchitis, not specified as acute or chronic (principal); R06.2 Wheezing; E11.65 Type 2 diabetes mellitus with hyperglycemia; D72.829 Elevated white blood cell count, unspecified; Z20.822 Contact with and (suspected) exposure to COVID-19; E66.9 Obesity, unspecified; Z68.41 Body mass index [BMI] 40.0-44.9, adult; R32 Unspecified urinary incontinence; Z87.891 Personal history of nicotine dependence; Z79.899 Other long term (current) drug therapy; Z79.84 Long term (current) use of oral hypoglycemic drugs; Z79.85 Long-term (current) use of injectable non-insulin antidiabetic drugs
CPT/HCPCS: 36415; 71046; 71260; 80053; 83605; 83880; 85025; 85380; 87637; 94640; 99284; 99285; A9270; Q9967

== ENCOUNTER 2024-12-29 11:53 | Outpatient (CLI) | payer MEDICARE, SELFPAY ==
--- NOTE | ~2024-12-29 | MMUS_ITS ---
EXAMINATION: MM diagnostic donte BI w kristal, US breast LT limited INDICATION: 69-year old female; BI-RADS 3, short-term follow-up probably benign left breast findings and post biopsy follow-up. Left breast ultrasound-guided core needle biopsy completed on 02/26/2024 showed tubular adenoma. COMPARISON: 01/29/2024. TECHNIQUE: Digital breast tomosynthesis True lateral, CC and MLO views s of BILATERAL breasts were obtained with computer-aided detection to assist in interpretation of the study. MAMMOGRAM FINDINGS: There are scattered areas of fibroglandular density. Recently biopsied mass in the lower outer left breast containing biopsy clip has not significantly changed. Asymmetry in the superior left breast is also unchanged. No new suspicious mass, calcification or architectural distortion to suggest malignancy in either breast. LEFT BREAST ULTRASOUND FINDINGS: Targeted evaluation of the area of concern was completed. 0.9 cm hypoechoic circumscribed mass with adjacent biopsy clip at 4:00 location 5 cm from the nipple in the LEFT breast redemonstrated have decreased in size in the interval. IMPRESSION: Probable Benign LEFT breast findings are unchanged. No mammographic evidence of malignancy within the Right breast. RECOMMENDATION: 6 month follow-up diagnostic LEFT mammogram and LEFT breast ultrasound. BI-RADS 3, PROBABLY BENIGN Reviewed, dictated and finalized at location B. IMPRESSION: Probable Benign LEFT breast findings are unchanged. No mammographic evidence of malignancy within the Right breast. RECOMMENDATION: 6 month follow-up diagnostic LEFT mammogram and LEFT breast ultrasound. BI-RADS 3, PROBABLY BENIGN
== END 2024-12-29 11:54 | disposition home or self-care (01) ==
LOC: ANHFOHIMG 11:53
PROVIDERS: PCP Internal Medicine Infectious Disease; Visit Provider Surgery
DX: R92.8 Other abnormal and inconclusive findings on diagnostic imaging of breast (principal); D24.2 Benign neoplasm of left breast; N63.23 Unspecified lump in the left breast, lower outer quadrant
CPT/HCPCS: 76642; 77062; 77066; G0279